=== PATIENT | female | born 1975 | race Caucasian/White ===

== ENCOUNTER 2016-09-17 15:40 | Emergency (ER) | payer OTHER ==
[2016-09-17 16:33] LABS: Appearance,Urine Clear (Clear); Bilirubin,Urine Negative (Negative); Glucose,Urine (UA) 4+ (Negative); Ketones,Urine Negative (Negative); Leukocyte Esterase,Urine Negative (Negative); Mucus,Urine Rare /hpf; Nitrite,Urine Negative (Negative); PH, Urine 5.5 (5.0-8.0); Particle Count 3771; Protein,Urine 1+ (Negative); RBC,Urine >182 /hpf (0-5); Specific Gravity,Urine 1.034 (1.001-1.035); Squamous Epithelial Cell,Urine 3 /hpf (0-4); UA Billing (MACRO vs. MICRO) MICRO; Urobilinogen,Urine <2.0 mg/dL (<2.0); WBC,Urine 5 /hpf (0-5)
[2016-09-17] MEDS ORDERED: ONDANSETRON 4 MG/2 ML VIAL IVP STA (16:34)
[2016-09-17] MEDS ORDERED: MORPHINE SULFATE 4 MG/ML SYRINGE IVP STA (16:34)
[2016-09-17] MEDS ORDERED: SODIUM CHLORIDE 0.9% 1,000 ML IV ONE (16:34)
--- NOTE | 2016-09-17 16:44 | ED ---
Abdominal Pain HPI - General Chief Complaint: Abdominal Pain Stated Complaint: abdominal/back/leg pain Time Seen by Provider: 09/17/16 16:03 Source: patient, RN notes reviewed Mode of arrival: wheelchair Limitations: no limitations - History of Present Illness Initial Comments: Patient is a 41-year-old female presents emergency room for evaluation of abdominal pain. Patient states she has nonalcoholic fatty liver disease. Patient states a month ago she was having right lower quadrant pain and went to [facility]. Patient states they did blood work and CT and was told she had urinary tract infection and sent her home. Patient states pain has returned the past 2 days. Patient states she has had bright red blood in her stools 2 days ago. Patient denies any blood in her stools today. Patient states she has a history of hemorrhoids. Patient denies any rectal pain or constipation. Patient states she is nauseous but denies vomiting. Patient states she has right-sided abdominal pain that radiates to her flank area. Patient denies any burning while urinating. Patient denies history of known kidney stones. Patient denies chest pain or shortness of breath. Patient states she has a history cholecystectomy. Patient states that she feels dizzy every once a while. Patient denies headache. Patient denies fevers or chills. - Related Data Previous Rx's Medication Instructions Recorded HYDROcodone/APAP 5-325MG [[place] 1 tab PO Q6HR PRN #12 tab 09/17/16 5-325] Ibuprofen [Motrin] 600 mg PO Q6HR PRN #20 tab 09/17/16 Metoclopramide HCl [Reglan] 5 mg PO TID PRN #12 tablet 09/17/16 Tamsulosin HCl [Flomax] 0.4 mg PO DAILY #10 cap 09/17/16 Allergies Allergy/AdvReac Type Severity Reaction Status Date / Time black pepper Allergy Rash/Hives Verified 09/17/16 16:16 metformin AdvReac Nausea & Verified 09/17/16 16:16 Vomiting Review of Systems ROS Statement: Those systems with pertinent positive or pertinent negative responses have been documented in the HPI. ROS Other: All systems not noted in ROS Statement are negative. Past Medical History Past Medical History: Asthma, CVA/TIA, Diabetes Mellitus, Liver Disease Additional Past Medical History / Comment(s): GALLSTONES, DIVERTICULITIS, fatty liver History of Any Multi-Drug Resistant Organisms: None Reported Past Surgical History: Section, Cholecystectomy, Tubal Ligation Past Anesthesia/Blood Transfusion Reactions: No Reported Reaction Past Psychological History: Bipolar, Depression Smoking Status: Current every day smoker Past Alcohol Use History: None Reported Past Drug Use History: Marijuana General Exam - General Exam Comments Initial Comments: laying in exam room, no distress. Limitations: no limitations General appearance: alert, in no apparent distress Head exam: Present: atraumatic, normocephalic, normal inspection Eye exam: Present: normal appearance ENT exam: Present: normal exam Neck exam: Present: normal inspection Respiratory exam: Present: normal lung sounds bilaterally. Absent: respiratory distress Cardiovascular Exam: Present: normal rhythm, tachycardia, normal heart sounds GI/Abdominal exam: Present: soft, tenderness (right upper quadrant), normal bowel sounds. Absent: distended, guarding, rebound, rigid Extremities exam: Present: normal inspection Back exam: Present: normal inspection, CVA tenderness (R). Absent: CVA tenderness (L) Neurological exam: Present: alert, oriented X3, CN II-XII intact, normal gait Psychiatric exam: Present: normal affect, normal mood Skin exam: Present: warm, dry, intact, normal color. Absent: rash Course Vital Signs 09/17/16 09/17/16 09/17/16 15:47 17:19 18:15 Temperature 99.3 F Pulse Rate 113 H 94 92 Respiratory 18 20 18 Rate Blood Pressure 136/70 124/56 126/58 O2 Sat by Pulse 98 98 99 Oximetry - Reevaluation(s) Reevaluation #1: 09/17/16 18:19 Results and from [facility] from 07/14/16. CT of abdomen/pelvis from does show that there is a 3 mm calcification in the lower pole of the right kidney and a 3 mm calcification in the lower pole of left kidney. Patient is noted to have hematuria currently. Patient is not menstruating. Patient complaining of flank and right sided abdominal pain. Patient's symptoms consistent with kidney stone passing. Patient states she is still having pain. Patient will be sent home after symptoms improve. 09/17/16 18:49 Medical Decision Making - Medical Decision Making Patient is a 41-year-old emergency room for evaluation of right-sided abdominal pain and right-sided flank pain. the patient did mention after evaluation that she had chest pain 2 days ago. Patient denies any current chest pain. Cardiac workup negative. Urinalysis significant for hematuria. Discussed differentials with patient including possible kidney stone. Patient does have stones noted in last CT from 07/14/16 at [facility]. It is likely patient is passing a kidney stone. Patient be sent home with pain medications and advised to follow- up with urologist. Patient states she understands everything that was discussed with her. Return parameters discussed. Case discussed with Dr. Brito. - Lab Data Result diagrams: 09/17/16 16:40 09/17/16 16:40 Lab Results 09/17/16 09/17/16 09/17/16 Range/Units 16:14 16:14 16:40 WBC (3.8-10.6) k/uL RBC (3.80-5.40) m/uL Hgb (11.4-16.0) gm/dL Hct (34.0-46.0) % MCV (80.0-100.0) fL MCH (25.0-35.0) pg MCHC (31.0-37.0) g/dL RDW (11.5-15.5) % Plt Count (150-450) k/uL Neutrophils % % Lymphocytes % % Monocytes % % Eosinophils % % Basophils % % Neutrophils # (1.3-7.7) k/uL Lymphocytes # (1.0-4.8) k/uL Monocytes # (0-1.0) k/uL Eosinophils # (0-0.7) k/uL Basophils # (0-0.2) k/uL Hypochromasia Microcytosis PT (9.0-12.0) sec INR (<1.2) APTT (22.0-30.0) sec D-Dimer (<0.60) mg/L FEU Sodium (137-145) mmol/L Potassium (3.5-5.1) mmol/L Chloride (98-107) mmol/L Carbon Dioxide (22-30) mmol/L Anion Gap mmol/L BUN (7-17) mg/dL Creatinine (0.52-1.04) mg/dL Est GFR (MDRD) Af Amer (>60 ml/min/1.73 sqM) Est GFR (MDRD) Non-Af (>60 ml/min/1.73 sqM) Glucose (74-99) mg/dL Plasma Lactic Acid Hubert (0.7-2.0) mmol/L Calcium (8.4-10.2) mg/dL Magnesium (1.6-2.3) mg/dL Total Bilirubin (0.2-1.3) mg/dL AST (14-36) U/L ALT (9-52) U/L Alkaline Phosphatase (38-126) U/L Total Creatine Kinase (30-135) U/L CK-MB (CK-2) (0.0-2.4) ng/mL CK-MB (CK-2) Rel Index Troponin I (0.000-0.034) ng/mL Total Protein (6.3-8.2) g/dL Albumin (3.5-5.0) g/dL Amylase (30-110) U/L Lipase 69 (23-300) U/L Urine Color Yellow Urine Appearance Clear (Clear) Urine pH 5.5 (5.0-8.0) Ur Specific Matthews 1.034 (1.001-1.035) Urine Protein 1+ H (Negative) Urine Glucose (UA) 4+ H (Negative) Urine Ketones Negative (Negative) Urine Blood Large H (Negative) Urine Nitrite Negative (Negative) Urine Bilirubin Negative (Negative) Urine Urobilinogen <2.0 (<2.0) mg/dL Ur Leukocyte Esterase Negative (Negative) Urine RBC >182 H (0-5) /hpf Urine WBC 5 (0-5) /hpf Ur Squamous Epith Cells 3 (0-4) /hpf Urine Mucus Rare H (None) /hpf Urine HCG, Qual Not Detected (Not Detectd) Stool Occult Blood (Negative) 09/17/16 09/17/16 09/17/16 Range/Units 16:40 16:40 16:40 WBC 10.1 (3.8-10.6) k/uL RBC 4.51 (3.80-5.40) m/uL Hgb 11.1 L (11.4-16.0) gm/dL Hct 35.1 (34.0-46.0) % MCV 78.0 L (80.0-100.0) fL MCH 24.6 L (25.0-35.0) pg MCHC 31.6 (31.0-37.0) g/dL RDW 15.3 (11.5-15.5) % Plt Count 250 (150-450) k/uL Neutrophils % 62 % Lymphocytes % 27 % Monocytes % 4 % Eosinophils % 4 % Basophils % 1 % Neutrophils # 6.3 (1.3-7.7) k/uL Lymphocytes # 2.7 (1.0-4.8) k/uL Monocytes # 0.4 (0-1.0) k/uL Eosinophils # 0.4 (0-0.7) k/uL Basophils # 0.1 (0-0.2) k/uL Hypochromasia Marked Microcytosis Slight PT (9.0-12.0) sec INR (<1.2) APTT (22.0-30.0) sec D-Dimer (<0.60) mg/L FEU Sodium 135 L (137-145) mmol/L Potassium 4.1 (3.5-5.1) mmol/L Chloride 101 (98-107) mmol/L Carbon Dioxide 22 (22-30) mmol/L Anion Gap 12 mmol/L BUN 11 (7-17) mg/dL Creatinine 0.52 (0.52-1.04) mg/dL Est GFR (MDRD) Af Amer >60 (>60 ml/min/1.73 sqM) Est GFR (MDRD) Non-Af >60 (>60 ml/min/1.73 sqM) Glucose 324 H (74-99) mg/dL Plasma Lactic Acid Hubert 1.5 (0.7-2.0) mmol/L Calcium 9.2 (8.4-10.2) mg/dL Magnesium (1.6-2.3) mg/dL Total Bilirubin 0.9 (0.2-1.3) mg/dL AST 72 H (14-36) U/L ALT 117 H (9-52) U/L Alkaline Phosphatase 176 H (38-126) U/L Total Creatine Kinase (30-135) U/L CK-MB (CK-2) (0.0-2.4) ng/mL CK-MB (CK-2) Rel Index Troponin I (0.000-0.034) ng/mL Total Protein 7.9 (6.3-8.2) g/dL Albumin 4.1 (3.5-5.0) g/dL Amylase 57 (30-110) U/L Lipase (23-300) U/L Urine Color Urine Appearance (Clear) Urine pH (5.0-8.0) Ur Specific Matthews (1.001-1.035) Urine Protein (Negative) Urine Glucose (UA) (Negative) Urine Ketones (Negative) Urine Blood (Negative) Urine Nitrite (Negative) Urine Bilirubin (Negative) Urine Urobilinogen (<2.0) mg/dL Ur Leukocyte Esterase (Negative) Urine RBC (0-5) /hpf Urine WBC (0-5) /hpf Ur Squamous Epith Cells (0-4) /hpf Urine Mucus (None) /hpf Urine HCG, Qual (Not Detectd) Stool Occult Blood (Negative) 09/17/16 09/17/16 09/17/16 Range/Units 16:40 16:40 16:40 WBC (3.8-10.6) k/uL RBC (3.80-5.40) m/uL Hgb (11.4-16.0) gm/dL Hct (34.0-46.0) % MCV (80.0-100.0) fL MCH (25.0-35.0) pg MCHC (31.0-37.0) g/dL RDW (11.5-15.5) % Plt Count (150-450) k/uL Neutrophils % % Lymphocytes % % Monocytes % % Eosinophils % % Basophils % % Neutrophils # (1.3-7.7) k/uL Lymphocytes # (1.0-4.8) k/uL Monocytes # (0-1.0) k/uL Eosinophils # (0-0.7) k/uL Basophils # (0-0.2) k/uL Hypochromasia Microcytosis PT (9.0-12.0) sec INR (<1.2) APTT (22.0-30.0) sec D-Dimer (<0.60) mg/L FEU Sodium (137-145) mmol/L Potassium (3.5-5.1) mmol/L Chloride (98-107) mmol/L Carbon Dioxide (22-30) mmol/L Anion Gap mmol/L BUN (7-17) mg/dL Creatinine (0.52-1.04) mg/dL Est GFR (MDRD) Af Amer (>60 ml/min/1.73 sqM) Est GFR (MDRD) Non-Af (>60 ml/min/1.73 sqM) Glucose (74-99) mg/dL Plasma Lactic Acid Hubert (0.7-2.0) mmol/L Calcium (8.4-10.2) mg/dL Magnesium 1.5 L (1.6-2.3) mg/dL Total Bilirubin (0.2-1.3) mg/dL AST (14-36) U/L ALT (9-52) U/L Alkaline Phosphatase (38-126) U/L Total Creatine Kinase 33 (30-135) U/L CK-MB (CK-2) 0.4 (0.0-2.4) ng/mL CK-MB (CK-2) Rel Index 1.2 Troponin I <0.012 (0.000-0.034) ng/mL Total Protein (6.3-8.2) g/dL Albumin (3.5-5.0) g/dL Amylase (30-110) U/L Lipase (23-300) U/L Urine Color Urine Appearance (Clear) Urine pH (5.0-8.0) Ur Specific Matthews (1.001-1.035) Urine Protein (Negative) Urine Glucose (UA) (Negative) Urine Ketones (Negative) Urine Blood (Negative) Urine Nitrite (Negative) Urine Bilirubin (Negative) Urine Urobilinogen (<2.0) mg/dL Ur Leukocyte Esterase (Negative) Urine RBC (0-5) /hpf Urine WBC (0-5) /hpf Ur Squamous Epith Cells (0-4) /hpf Urine Mucus (None) /hpf Urine HCG, Qual (Not Detectd) Stool Occult Blood Negative (Negative) 09/17/16 Range/Units 16:40 WBC (3.8-10.6) k/uL RBC (3.80-5.40) m/uL Hgb (11.4-16.0) gm/dL Hct (34.0-46.0) % MCV (80.0-100.0) fL MCH (25.0-35.0) pg MCHC (31.0-37.0) g/dL RDW (11.5-15.5) % Plt Count (150-450) k/uL Neutrophils % % Lymphocytes % % Monocytes % % Eosinophils % % Basophils % % Neutrophils # (1.3-7.7) k/uL Lymphocytes # (1.0-4.8) k/uL Monocytes # (0-1.0) k/uL Eosinophils # (0-0.7) k/uL Basophils # (0-0.2) k/uL Hypochromasia Microcytosis PT 10.8 (9.0-12.0) sec INR 1.1 (<1.2) APTT 23.4 (22.0-30.0) sec D-Dimer 0.31 (<0.60) mg/L FEU Sodium (137-145) mmol/L Potassium (3.5-5.1) mmol/L Chloride (98-107) mmol/L Carbon Dioxide (22-30) mmol/L Anion Gap mmol/L BUN (7-17) mg/dL Creatinine (0.52-1.04) mg/dL Est GFR (MDRD) Af Amer (>60 ml/min/1.73 sqM) Est GFR (MDRD) Non-Af (>60 ml/min/1.73 sqM) Glucose (74-99) mg/dL Plasma Lactic Acid Hubert (0.7-2.0) mmol/L Calcium (8.4-10.2) mg/dL Magnesium (1.6-2.3) mg/dL Total Bilirubin (0.2-1.3) mg/dL AST (14-36) U/L ALT (9-52) U/L Alkaline Phosphatase (38-126) U/L Total Creatine Kinase (30-135) U/L CK-MB (CK-2) (0.0-2.4) ng/mL CK-MB (CK-2) Rel Index Troponin I (0.000-0.034) ng/mL Total Protein (6.3-8.2) g/dL Albumin (3.5-5.0) g/dL Amylase (30-110) U/L Lipase (23-300) U/L Urine Color Urine Appearance (Clear) Urine pH (5.0-8.0) Ur Specific Matthews (1.001-1.035) Urine Protein (Negative) Urine Glucose (UA) (Negative) Urine Ketones (Negative) Urine Blood (Negative) Urine Nitrite (Negative) Urine Bilirubin (Negative) Urine Urobilinogen (<2.0) mg/dL Ur Leukocyte Esterase (Negative) Urine RBC (0-5) /hpf Urine WBC (0-5) /hpf Ur Squamous Epith Cells (0-4) /hpf Urine Mucus (None) /hpf Urine HCG, Qual (Not Detectd) Stool Occult Blood (Negative) - Radiology Data Radiology results: report reviewed, image reviewed normal sinus rhythm, ventricular rate 92 bpm, MD interval 188 ms, QRS duration 78 ms Disposition Clinical Impression: Hematuria, Flank pain Disposition: HOME SELF-CARE Condition: Good Instructions: Kidney Stones (ED), How to Strain Your Urine (ED), Flank Pain (ED ) Additional Instructions: Drink plenty of water. Take medications as directed. Please follow-up with urologist. If any new symptom arises or symptoms worsen, return to ER as soon as possible. Prescriptions: HYDROcodone/APAP 5-325MG [[place] 5-325] 1 tab PO Q6HR PRN #12 tab PRN Reason: Pain Ibuprofen [Motrin] 600 mg PO Q6HR PRN #20 tab PRN Reason: Pain Metoclopramide HCl [Reglan] 5 mg PO TID PRN #12 tablet PRN Reason: Nausea Tamsulosin HCl [Flomax] 0.4 mg PO DAILY #10 cap Referrals: Sahil Meraz MD [Primary Care Provider] - 1-2 days Shady Slade MD [STAFF PHYSICIAN] - 1-2 days Time of Disposition: 18:52
[2016-09-17 16:58] LABS: Basophils # (A) 0.1 k/uL (0-0.2); Basophils % (A) 1 %; Hypochromasia Marked; Microcytosis Slight
[2016-09-17 17:00] LABS: CH 23.3; Eosinophils # (A) 0.4 k/uL (0-0.7); Eosinophils % (A) 4 %; HCT 35.1 % (34.0-46.0); HGB 11.1 gm/dL (11.4-16.0); Luc # (Auto) 0.19; Luc % (Auto) 2; Lymphocytes # (A) 2.7 k/uL (1.0-4.8); Lymphocytes % (A) 27 %; MCH 24.6 pg (25.0-35.0); MCHC 31.6 g/dL (31.0-37.0); Mean Platelet Volume 7.4; Monocytes # (A) 0.4 k/uL (0-1.0); Monocytes % (A) 4 %; Neutrophils # (A) 6.3 k/uL (1.3-7.7); Neutrophils % (A) 62 %; RBC 4.51 m/uL (3.80-5.40); RDW 15.3 % (11.5-15.5); WBC 10.1 k/uL (3.8-10.6); WBC (Perox) 9.94
[2016-09-17 17:04] LABS: ALT 117 U/L (9-52); AST 72 U/L (14-36); Alkaline Phosphatase 176 U/L (38-126); Amylase 57 U/L (30-110); Anion Gap 12 mmol/L; Blood Urea Nitrogen 11 mg/dL (7-17); Calcium 9.2 mg/dL (8.4-10.2); Carbon Dioxide 22 mmol/L (22-30); Chloride 101 mmol/L (98-107); Glucose 324 mg/dL (74-99); Non-African American GFR(MDRD) >60 (>60 ml/min/1.73 sqM); Potassium 4.1 mmol/L (3.5-5.1); Sodium 135 mmol/L (137-145); Total Bilirubin 0.9 mg/dL (0.2-1.3); Total Protein 7.9 g/dL (6.3-8.2)
[2016-09-17 17:43] LABS: Creatine Kinase 33 U/L (30-135); INR 1.1 (<1.2); Partial Thromboplastin Time 23.4 sec (22.0-30.0); Prothrombin Time 10.8 sec (9.0-12.0)
--- NOTE | 2016-09-17 17:49 | XR ---
EXAMINATION TYPE: XR abdomen acute w cxr DATE OF EXAM: 09/17/2016 CLINICAL HISTORY: Chest and abdominal pain wrapping around back for 2 days . TECHNIQUE: Single frontal view of chest is obtained. Supine and upright views of the abdomen are acq uired. COMPARISON: Chest x-ray and CTA chest April 25, 2014. CT abdomen and pelvis April 06, 2015. FINDINGS: The lungs are grossly clear without pleural effusion or pneumothorax. Cardiac silhouette size appears within normal limits. Atherosclerotic change in aortic knob is noted. Osseous structure s are intact. Gas is noted in nondistended stomach and small bowel loops. Gas and fecal material is seen in nondis tended colon. Cholecystectomy clips are present. No pneumoperitoneum is seen. Spleen remains prominen t. Spurring in both hips at level of greater trochanter is redemonstrated. No pneumoperitoneum is see n. IMPRESSION: 1. No acute pulmonary process. 2. Overall nonobstructive bowel gas pattern. Probable splenomegaly is now noted.
[2016-09-17 17:55] LABS: Creatine Kinase MB 0.4 ng/mL (0.0-2.4); Troponin I <0.012 ng/mL (0.000-0.034)
[2016-09-17] MEDS ORDERED: TAMSULOSIN 0.4 MG CAP.ER.24H PO STA (18:18)
[2016-09-17] MEDS ORDERED: KETOROLAC 30 MG/ML 1 ML VIAL IVP STA (18:19)
[2016-09-17] MEDS ORDERED: HYDROmorphone 1 MG/ML 1 ML SYRINGE IVP STA (18:19)
[2016-09-17] MEDS ORDERED: SODIUM CHLORIDE 0.9% 500 ML IV ONE (18:24)
[2016-09-17 18:40] VITALS: RESP 18
[2016-09-17 19:16] VITALS: BP 105/51; PULSE 89; TEMP 98.9
== END 2016-09-17 19:15 | disposition home or self-care (01) ==
LOC: EC 15:40
DX: R31.9 Hematuria, unspecified (principal); R10.11 Right upper quadrant pain; R00.0 Tachycardia, unspecified; F17.200 Nicotine dependence, unspecified, uncomplicated; Z87.19 Personal history of other diseases of the digestive system; Z90.49 Acquired absence of other specified parts of digestive tract; Z91.018 Allergy to other foods; Z88.8 Allergy status to other drugs, medicaments and biological substances; Z87.442 Personal history of urinary calculi
CPT/HCPCS: 99285; 96374; 96375 ×3; 96361 ×2; 36415; 93005; 85379; 80053; 82150; 82550; 82553; 83605; 83690; 83735; 84484; 85025; 85610; 85730; 82272; 81001; 81025; 87040; 74022; J2270; J2405; J1885; J1170

== ENCOUNTER → 2017-02-23 | Outpatient (CLI) | payer OTHER ==
[2017-02-23 17:49] LABS: Blood Urea Nitrogen 8 mg/dL (7-17); Non-African American GFR(MDRD) >60 (>60 ml/min/1.73 sqM)
--- NOTE | 2017-02-23 19:56 | CT ---
EXAMINATION TYPE: CT abdomen pelvis w con DATE OF EXAM: 02/23/2017 COMPARISON: 04/06/2015 HISTORY: Right lower quadrant abdominal pain with nausea. CT DLP: 1751.00 mGycm Automated exposure control for dose reduction was used. TECHNIQUE: Helical acquisition of images was performed from the lung bases through the pelvis. CONTRAST: Performed with Oral Contrast and with IV Contrast, patient injected with 100 mL of Omnipaque 300. FINDINGS: LUNG BASES: No significant abnormality is appreciated. LIVER/GB: No significant abnormality is appreciated. PANCREAS: No significant abnormality is seen. SPLEEN: No significant abnormality is seen. ADRENALS: No significant abnormality is seen. KIDNEYS: No significant abnormality is seen. Previously seen 4 mm nonobstructing calcification in the lower pole of the left kidney is redemonstrated without interval change. PERITONEAL CAVITY: No abnormal fluid or gas collections. RETROPERITONEAL ADENOPATHY: None visualized REPRODUCTIVE ORGANS: No significant abnormality is seen URINARY BLADDER: No significant abnormality is seen. PELVIC ADENOPATHY: None visualized. OSSEOUS STRUCTURES: No significant abnormality is seen. BOWEL: No significant abnormality is seen. Terminal ileum is well-seen and has normal appearance, as does the appendix and the cecum. OTHER: The anterior abdominal pelvic muscular wall is intact. VASCULATURE: Negative as seen. IMPRESSION: NO ACUTE PROCESS.
== END | disposition home or self-care (01) ==
LOC: RADCTMAIN 17:02
PROVIDERS: ATTEND Family Medicine
DX: R10.31 Right lower quadrant pain (principal); Z88.8 Allergy status to other drugs, medicaments and biological substances
CPT/HCPCS: 82565; 84520; 74177; 36415; Q9967

== ENCOUNTER 2017-05-24 22:56 | Emergency (ER) | payer OTHER ==
[2017-05-24 23:00] VITALS: BP 133/76; PULSE 85; RESP 18; TEMP 99.4
--- NOTE | 2017-05-24 23:25 | ED ---
URI HPI - General Chief Complaint: Upper Respiratory Infection Stated Complaint: Ear Pain/Sore Throat Time Seen by Provider: 05/24/17 23:16 Source: patient Mode of arrival: ambulatory Limitations: no limitations - History of Present Illness Initial Comments: This is a 41-year-old female who presents emergency department for sinus pressure, bilateral ear pain, and sore throat. She states that she has been treated for pneumonia for the last 2 weeks. She's been on a course of Cipro and is currently taking Keflex. She states that she's her primary doctor today for the above symptoms and was told that she was not going to get any more medications. She denies any fevers or chills. Does admit to a cough and a little bit of shortness of breath. No chest pain. No other acute complaints. - Related Data Previous Rx's Medication Instructions Recorded HYDROcodone/APAP 5-325MG [[place] 1 tab PO Q6HR PRN #12 tab 09/17/16 5-325] Ibuprofen [Motrin] 600 mg PO Q6HR PRN #20 tab 09/17/16 Metoclopramide HCl [Reglan] 5 mg PO TID PRN #12 tablet 09/17/16 Tamsulosin HCl [Flomax] 0.4 mg PO DAILY #10 cap 09/17/16 Albuterol Inhaler [Ventolin Hfa 1 - 2 puff INHALATION Q6HR PRN #1 05/24/17 Inhaler] inhaler methylPREDNISolone [Medrol Dose 4 mg PO DIRECTED #1 pack 05/24/17 Pack] Allergies Allergy/AdvReac Type Severity Reaction Status Date / Time black pepper Allergy Rash/Hives Verified 05/24/17 23:35 metformin AdvReac Nausea & Verified 05/24/17 23:35 Vomiting Review of Systems ROS Statement: Those systems with pertinent positive or pertinent negative responses have been documented in the HPI. ROS Other: All systems not noted in ROS Statement are negative. Past Medical History Past Medical History: Asthma, CVA/TIA, Diabetes Mellitus, Liver Disease Additional Past Medical History / Comment(s): GALLSTONES, DIVERTICULITIS, fatty liver History of Any Multi-Drug Resistant Organisms: None Reported Past Surgical History: Section, Cholecystectomy, Tubal Ligation Past Anesthesia/Blood Transfusion Reactions: No Reported Reaction Past Psychological History: Bipolar, Depression Smoking Status: Current every day smoker Past Alcohol Use History: None Reported Past Drug Use History: Marijuana General Exam - General Exam Comments Initial Comments: Constitutional: Awake alert Appears comfortable Head: Normocephalic atraumatic Eyes: no conjunctival injection No scleral icterus EOMI ENT: TMs clear bilaterally, mild oropharyngeal erythema without exudate, there is some nasal mucosal swelling. There is also some mild x-ray sinus tenderness bilaterally Neck: No JVD Supple Heart: Regular rate rhythm normal S1-S2 no murmurs Lungs: Bilateral expiratory wheezes without rhonchi or rales Abdomen: Soft nondistended nontender Extremities: Non edematous DP pulses intact Radial pulses intact Neuro: A&Ox3 No focal neurologic deficits Psych: Appropriate mood and affect Limitations: no limitations Course Vital Signs 05/24/17 22:57 Temperature 99.4 F Pulse Rate 85 Respiratory 18 Rate Blood Pressure 133/76 O2 Sat by Pulse 98 Oximetry Medical Decision Making - Medical Decision Making This is a 41-year-old female who presents emergency department for upper respiratory symptoms. I believe the patient is likely suffering from sinusitis. She is already on antibiotics. I'm going to add steroids and albuterol to her regimen. Also told to pickling grader Flonase [id number] at the pharmacy. Told to follow-up with her primary doctor. Can return if she has worsening symptoms. All questions were answered. Disposition Clinical Impression: URI (upper respiratory infection), Sinusitis, Bronchitis Disposition: HOME SELF-CARE Condition: Stable Instructions: Sinusitis (ED), Upper Respiratory Infection (ED) Prescriptions: Albuterol Inhaler [Ventolin Hfa Inhaler] 1 - 2 puff INHALATION Q6HR PRN #1 inhaler PRN Reason: Cough/Wheezing methylPREDNISolone [Medrol Dose Pack] 4 mg PO DIRECTED #1 pack Referrals: Sahil Meraz MD [Primary Care Provider] - 1-2 days
== END 2017-05-24 23:35 | disposition home or self-care (01) ==
LOC: EC 22:56
DX: J40 Bronchitis, not specified as acute or chronic (principal); J32.9 Chronic sinusitis, unspecified; J06.9 Acute upper respiratory infection, unspecified; F17.200 Nicotine dependence, unspecified, uncomplicated; Z88.8 Allergy status to other drugs, medicaments and biological substances; Z91.018 Allergy to other foods
CPT/HCPCS: 99283

== ENCOUNTER 2017-05-27 02:40 | Emergency (ER) | payer OTHER ==
[2017-05-27] MEDS ORDERED: KETOROLAC 30 MG/ML 1 ML VIAL IVP STA (03:00)
[2017-05-27] MEDS ORDERED: guaiFENesin-DM 600/30MG 1 EACH TAB.ER.12H PO STA (03:00)
[2017-05-27] MEDS ORDERED: ACET/COD 300 MG/30 MG STARTER PACK 6 TAB BTL PO STA (03:00)
--- NOTE | 2017-05-27 03:26 | ED ---
ENT HPI - General Chief complaint: ENT Stated complaint: Earache Time Seen by Provider: 05/27/17 02:50 Source: patient, RN notes reviewed, old records reviewed Mode of arrival: ambulatory Limitations: no limitations - History of Present Illness Initial comments: This patient is a 41-year-old FEMAle for reevaluation chief complaint right ear pain. She reports that she's had having the symptoms for 5 days. Worse in the past few hours of nose bleeding really home with just Motrin. Patient states that she feels a fullness area. No drainage. She said had of the ear. She denies any new exposures. Patient denies any recent fever, chills, shortness of breath, chest pain, back pain, abdominal pain, nausea vomiting, numbness or tingling, dysuria or hematuria, constipation or diarrhea, headaches or visual changes, or any other current symptoms - Related Data Home Medications Medication Instructions Recorded Confirmed Albuterol Nebulized [Ventolin 2.5 mg INHALATION RT-Q4H PRN 05/24/17 05/24/17 Nebulized] Cephalexin [Keflex] 500 mg PO QID 05/24/17 05/24/17 Previous Rx's Medication Instructions Recorded Albuterol Inhaler [Ventolin Hfa 1 - 2 puff INHALATION Q6HR PRN #1 05/24/17 Inhaler] inhaler methylPREDNISolone [Medrol Dose 4 mg PO DIRECTED #1 pack 05/24/17 Pack] Amoxic-Pot Clav 875-125Mg 1 tab PO Q12HR #20 tablet 05/27/17 [Augmentin 875-125] Ciprofloxacin Ophth Soln [Cipro 1 drops LEFT EYE Q4HR #1 bottle 05/27/17 Ophth Soln] guaiFENesin-DM 600/30MG [Mucinex 1 each PO Q12HR #12 tab.er.12h 05/27/17 Dm] Allergies Allergy/AdvReac Type Severity Reaction Status Date / Time black pepper Allergy Rash/Hives Verified 05/24/17 23:35 metformin AdvReac Nausea & Verified 05/24/17 23:35 Vomiting Review of Systems ROS Statement: Those systems with pertinent positive or pertinent negative responses have been documented in the HPI. ROS Other: All systems not noted in ROS Statement are negative. Past Medical History Past Medical History: Asthma, CVA/TIA, Diabetes Mellitus, Liver Disease Additional Past Medical History / Comment(s): GALLSTONES, DIVERTICULITIS, fatty liver History of Any Multi-Drug Resistant Organisms: None Reported Past Surgical History: Section, Cholecystectomy, Tubal Ligation Past Anesthesia/Blood Transfusion Reactions: No Reported Reaction Past Psychological History: Bipolar, Depression Smoking Status: Former smoker Past Alcohol Use History: None Reported Past Drug Use History: Marijuana General Exam - General Exam Comments Initial Comments: This is a 41-year-old female. No distress. Limitations: no limitations General appearance: alert, in no apparent distress Head exam: Present: atraumatic, normocephalic, normal inspection Eye exam: Present: normal appearance, PERRL, EOMI. Absent: scleral icterus, conjunctival injection, periorbital swelling ENT exam: Present: normal exam, mucous membranes moist. Absent: TM's normal bilaterally (Patient has an erythematous bulging right TM. Tenderness to palpation over the mid right mastoid.) Neck exam: Present: normal inspection, full ROM. Absent: tenderness, meningismus, lymphadenopathy Respiratory exam: Present: normal lung sounds bilaterally. Absent: respiratory distress, wheezes, rales, rhonchi, stridor Cardiovascular Exam: Present: regular rate, normal rhythm, normal heart sounds. Absent: systolic murmur, diastolic murmur, rubs, gallop, clicks GI/Abdominal exam: Present: soft, normal bowel sounds. Absent: distended, tenderness, guarding, rebound, rigid Extremities exam: Present: normal inspection Back exam: Present: normal inspection Neurological exam: Present: alert, oriented X3, CN II-XII intact Psychiatric exam: Present: normal affect, normal mood Skin exam: Present: warm, dry, intact, normal color. Absent: rash Course Vital Signs 05/27/17 05/27/17 05/27/17 02:43 04:55 05:11 Temperature 98.7 F Pulse Rate 77 76 76 Respiratory 20 Rate Blood Pressure 151/65 O2 Sat by Pulse 98 Oximetry 05/27/17 05:24 Temperature 98.2 F Pulse Rate 72 Respiratory 18 Rate Blood Pressure 132/66 O2 Sat by Pulse 96 Oximetry - Reevaluation(s) Reevaluation #1: 05/27/17 04:40 Patient was reevaluated and resting comfortably in bed. She is coughing milk and does complain of some wheezing. Breathing treatment and IV Solu-Medrol ordered. Medical Decision Making - Medical Decision Making Patient is a 41-year-old female presents emergency Department chief complaint of severe right ear pain. Patient was tender over the mastoid. Erythematous right TM. She recently finished Keflex antibiotic yesterday. Patient is given IV fluids labwork obtained. Patient does have an elevated white blood cell count however this could be related to the patient's steroids that she is currently taking. Patient was reevaluated again did have some minor wheezing. Given a breathing treatment and cough syrup. Patient chest x-ray was reviewed and normal. CT shows evdience of left TM otitis interna, no signs of right otitis interna. They also question possibiity of underlying tumor. Patient informed of these results. Discussed appropriate follow up withENT. Will start patient on augmentin, cipro drops. Discussed return parameters and follow up with PCP. - Lab Data Result diagrams: 05/27/17 04:00 05/27/17 04:00 Lab Results 05/27/17 05/27/17 Range/Units 04:00 04:00 WBC 15.9 H (3.8-10.6) k/uL RBC 4.35 (3.80-5.40) m/uL Hgb 9.6 L (11.4-16.0) gm/dL Hct 32.4 L (34.0-46.0) % MCV 74.4 L (80.0-100.0) fL MCH 22.1 L (25.0-35.0) pg MCHC 29.7 L (31.0-37.0) g/dL RDW 16.5 H (11.5-15.5) % Plt Count 352 (150-450) k/uL Neutrophils % 81 % Lymphocytes % 12 % Monocytes % 4 % Eosinophils % 1 % Basophils % 1 % Neutrophils # 12.8 H (1.3-7.7) k/uL Lymphocytes # 2.0 (1.0-4.8) k/uL Monocytes # 0.7 (0-1.0) k/uL Eosinophils # 0.1 (0-0.7) k/uL Basophils # 0.1 (0-0.2) k/uL Hypochromasia Marked Anisocytosis Slight Microcytosis Slight Sodium 136 L (137-145) mmol/L Potassium 5.0 (3.5-5.1) mmol/L Chloride 103 (98-107) mmol/L Carbon Dioxide 19 L (22-30) mmol/L Anion Gap 14 mmol/L BUN 16 (7-17) mg/dL Creatinine 0.50 L (0.52-1.04) mg/dL Est GFR (CKD-EPI)AfAm >90 (>60 ml/min/1.73 sqM) Est GFR (CKD-EPI)NonAf >90 (>60 ml/min/1.73 sqM) Glucose 416 H (74-99) mg/dL Calcium 9.1 (8.4-10.2) mg/dL Total Bilirubin 0.7 (0.2-1.3) mg/dL AST 29 (14-36) U/L ALT 33 (9-52) U/L Alkaline Phosphatase 149 H (38-126) U/L Total Protein 8.3 H (6.3-8.2) g/dL Albumin 4.0 (3.5-5.0) g/dL - Radiology Data Radiology results: report reviewed Chest x-ray is normal. No changes. Opacity case in the left middle ear cavity consistent with otitis interna. There is bulging of the tympanic membrane. Pansinusitis. Normal mastoid sinuses. Changes involving the left middle ear compared to old computed tomography scan. Possibility of tympanic tumor cannot be entirely excluded. Disposition Clinical Impression: Otitis Disposition: HOME SELF-CARE Condition: Good Instructions: Earache (ED) Additional Instructions: Alternate Motrin and Tylenol. Take the meds as prescribed. Follow-up with PCP and her nose and throat specialist. Return to emergency department if any alarming signs or symptoms occur. Prescriptions: Amoxic-Pot Clav 875-125Mg [Augmentin 875-125] 1 tab PO Q12HR #20 tablet Ciprofloxacin Ophth Soln [Cipro Ophth Soln] 1 drops LEFT EYE Q4HR #1 bottle guaiFENesin-DM 600/30MG [Mucinex Dm] 1 each PO Q12HR #12 tab.er.12h Referrals: Sahil Meraz MD [Primary Care Provider] - 1-2 days Jax Steele DO [Doctor of Osteopathic Medicine] - 1-2 days Time of Disposition: 04:45
--- NOTE | 2017-05-27 03:40 | CT ---
EXAMINATION TYPE: CT mastoid wo con DATE OF EXAM: 05/27/2017 COMPARISON: NONE HISTORY: right sided ear ache CT DLP: 471.30 mGycm. Automated Exposure Control for Dose Reduction was Utilized. TECHNIQUE: CT scan of internal auditory canal is performed without contrast, thin cut axial images ar e obtained, coronal reformatted images are also reviewed. FINDINGS: There is normal aeration of the mastoid air cells. External auditory canal on the left side shows increased density at the tympanic membrane. There is opacification of the middle ear cavity on the left side. There is normal aeration of the epitympanic recess bilaterally. I see no bony destruc tive process. Temporomandibular joints are intact. There is moderate mucosal thickening in the frontal maxillary and ethmoid sinuses. There is minimal m ucosal thickening in the sphenoid sinus. CONCLUSION: Opacification of the left middle ear cavity consistent with otitis interna. There is bulging of the t ympanic membrane. Pansinusitis. Normal mastoid sinuses. Changes involving the left middle ear are new compared to old C T scan of the brain of 10/31/2013. Possibility of tympanic tumor cannot be entirely excluded.
--- NOTE | 2017-05-27 03:42 | XR ---
EXAMINATION TYPE: XR chest 2V DATE OF EXAM: 05/27/2017 COMPARISON: 04/25/2014 HISTORY: Pain TECHNIQUE: Frontal and lateral views of the chest are obtained. FINDINGS: Heart and mediastinum are normal. Lungs are clear. Diaphragm bony thorax and soft tissues appear normal. IMPRESSION: Normal chest. No change.
[2017-05-27] MEDS ORDERED: SODIUM CHLORIDE 0.9% 1,000 ML IV ONE (03:45)
[2017-05-27 04:15] LABS: Anisocytosis Slight; Basophils # (A) 0.1 k/uL (0-0.2); Basophils % (A) 1 %; Eosinophils # (A) 0.1 k/uL (0-0.7); Eosinophils % (A) 1 %; HCT 32.4 % (34.0-46.0); HGB 9.6 gm/dL (11.4-16.0); Hypochromasia Marked; Lymphocytes % (A) 12 %; MCH 22.1 pg (25.0-35.0); MCHC 29.7 g/dL (31.0-37.0); MCV 74.4 fL (80.0-100.0); Mean Platelet Volume 8.1; Microcytosis Slight; Monocytes # (A) 0.7 k/uL (0-1.0); Monocytes % (A) 4 %; Neutrophils # (A) 12.8 k/uL (1.3-7.7); Neutrophils % (A) 81 %; Platelet Count 352 k/uL (150-450); RBC 4.35 m/uL (3.80-5.40); RDW 16.5 % (11.5-15.5); WBC 15.9 k/uL (3.8-10.6)
[2017-05-27] MEDS ORDERED: PROMETHAZ-COD 6.25-10 MG/5 ML 5 ML CUP PO STA (04:33)
[2017-05-27] MEDS ORDERED: methylPREDNISolone SOD SUCCI 125 MG/2 ML VIAL IV STA (04:39)
[2017-05-27] MEDS ORDERED: IPRATROPIUM-ALBUTEROL 3 ML NEB INHALATION STA (04:39)
[2017-05-27 04:43] LABS: Anion Gap 14 mmol/L; Calcium 9.1 mg/dL (8.4-10.2); Carbon Dioxide 19 mmol/L (22-30); Chloride 103 mmol/L (98-107); Glucose 416 mg/dL (74-99); Sodium 136 mmol/L (137-145); Total Bilirubin 0.7 mg/dL (0.2-1.3); Total Protein 8.3 g/dL (6.3-8.2)
[2017-05-27 04:46] LABS: ALT 33 U/L (9-52); AST 29 U/L (14-36); Alkaline Phosphatase 149 U/L (38-126); Blood Urea Nitrogen 16 mg/dL (7-17)
[2017-05-27 05:25] VITALS: BP 132/66; PULSE 72; RESP 18; TEMP 98.2
== END 2017-05-27 05:26 | disposition home or self-care (01) ==
LOC: EC 02:40
DX: H83.02 Labyrinthitis, left ear (principal); Z86.73 Personal history of transient ischemic attack (TIA), and cerebral infarction without residual deficits; Z87.891 Personal history of nicotine dependence; Z91.018 Allergy to other foods; Z88.8 Allergy status to other drugs, medicaments and biological substances
CPT/HCPCS: 36415; 94640; 80053; 85025; 71046; 70486; 99284; 96374; 96375; 96361; J2930; J1885

== ENCOUNTER → 2017-06-02 | Outpatient (CLI) | payer OTHER ==
[2017-06-02 11:39] LABS: Anisocytosis Slight; HCT 36.7 % (34.0-46.0); HGB 10.9 gm/dL (11.4-16.0); Hypochromasia Marked; MCH 22.3 pg (25.0-35.0); MCHC 29.7 g/dL (31.0-37.0); MCV 75.1 fL (80.0-100.0); Mean Platelet Volume 7.9; Microcytosis Slight; Platelet Count 329 k/uL (150-450); RBC 4.89 m/uL (3.80-5.40); RDW 16.7 % (11.5-15.5); WBC 11.6 k/uL (3.8-10.6)
[2017-06-02 12:03] LABS: ALT 129 U/L (9-52); AST 78 U/L (14-36); Albumin 3.7 g/dL (3.5-5.0); Alkaline Phosphatase 150 U/L (38-126); Anion Gap 14 mmol/L; Blood Urea Nitrogen 13 mg/dL (7-17); Calcium 9.5 mg/dL (8.4-10.2); Carbon Dioxide 24 mmol/L (22-30); Chloride 103 mmol/L (98-107); Cholesterol 160 mg/dL (<200); Glucose 251 mg/dL (74-99); HDL Cholesterol 53 mg/dL (40-60); LDL Cholesterol,Calculated 79 mg/dL (0-99); Potassium 4.5 mmol/L (3.5-5.1); Sodium 141 mmol/L (137-145); Total Protein 7.6 g/dL (6.3-8.2); Triglycerides 138 mg/dL (<150)
[2017-06-03 14:22] LABS: Hemoglobin A1C 10.7 % (4.0-6.0)
--- NOTE | 2017-06-05 10:16 | XR ---
EXAMINATION TYPE: XR chest 2V DATE OF EXAM: 06/02/2017 COMPARISON: 05/27/2017 TECHNIQUE: PA and lateral views submitted. HISTORY: Cough FINDINGS: The lungs are clear and there is no pneumothorax, pleural effusion, or focal pneumonia. Mild hypert rophic change of the spine. IMPRESSION: 1. No acute process.
== END | disposition home or self-care (01) ==
LOC: LABWHC1 10:25
PROVIDERS: ATTEND Internal Medicine
DX: Z00.00 Encounter for general adult medical examination without abnormal findings (principal); I11.9 Hypertensive heart disease without heart failure; E11.9 Type 2 diabetes mellitus without complications; E03.9 Hypothyroidism, unspecified; D64.9 Anemia, unspecified; K21.0 Gastro-esophageal reflux disease with esophagitis; R05 Cough
CPT/HCPCS: 36415; 71046; 80053; 80061; 82043; 82570; 83036; 84439; 84443; 85027

== ENCOUNTER 2017-06-07 07:44 | Day surgery (SDC) | payer OTHER ==
[2017-06-05 09:24] VITALS: BMI 44.4
[~2017-06-07 07:44] MED LIST: LACTATED RINGERS 1,000 ML IV SCH; LIDOCAINE 1% 20 ML VIAL (10MG/ML) FOR IV START INTRADERMA PRN
[2017-06-07 08:26] VITALS: TEMP 97.6
[2017-06-07 08:28] LABS: Glucose,Whole Blood 262 mg/dL (75-99)
[2017-06-07] MEDS ORDERED: PROPOFOL 10 MG/ML 20 ML VIAL IV ONE (09:19)
[2017-06-07] MEDS ORDERED: LIDOCAINE 1% INJ 10MG/ML (20 ML MDV) ONE (09:19)
--- NOTE | 2017-06-07 09:38 | P.PCN ---
Date of Procedure: 06/07/17 Procedure(s) Performed: Brief history: Patient is a pleasant 41-year-old white female, scheduled for an elective upper endoscopy as well as colonoscopy as a part of evaluation of iron deficiency anemia. She denies any GI symptoms. Procedure performed: Esophagogastroduodenoscopy with biopsy Colonoscopy Preoperative diagnosis: Iron deficiency anemia Anesthesia: [facility] – [place] Procedure: After informed consent was obtained from the patient was brought into the endoscopy unit and IV sedation was administered by anesthesia under continuous monitoring. Initially upper endoscopy was done. The Olympus GF 160 video endoscope was inserted inserted into the mouth and esophagus intubated without any difficulty and was gradually advanced into the stomach and duodenum and carefully examined. The bulb and second part of the duodenum appeared normal. Biopsies were done from the duodenum to rule out celiac disease. The scope was then withdrawn into the stomach adequately insufflated with air and upon careful examination the antrum had mild gastritis and biopsies were done from this area. The barry, cardia and fundus appeared normal. The scope was then withdrawn into the esophagus. The GE junction was located at 40 cm to the incisors. It appeared regular with no erythema erosions or ulcerations. Rest of the esophagus appeared normal. Patient tolerated the procedure well. At this time the patient continued to remain sedation. Initial digital rectal examination was normal. Olympus CF 160 video colonoscope was then inserted into the rectum and gradually advanced to the cecum without any difficulty. Careful examination was performed as the scope was gradually being withdrawn. The prep was excellent. The cecum, ascending colon, transverse colon, descending colon, sigmoid colon and rectum appeared normal. Retroflexion was performed in the rectum and no lesions were noted. Patient tolerated the procedure well. Impression: 1. Upper endoscopy revealed minimal antral gastritis but no evidence of esophagitis or peptic ulcer disease. 2. Colonoscopy was within normal limits with no evidence of colitis or colorectal neoplasia Recommendations: Findings of this examination were discussed with the patient as well dimitri family. She was advised to follow with the biopsy results. She'll be seen in office in 2 weeks. 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
[2017-06-07 09:45] VITALS: RESP 16
[2017-06-07 10:04] VITALS: BP 125/75; PULSE 69
[2017-06-07 10:09] LABS: Glucose,Whole Blood 226 mg/dL (75-99)
== END 2017-06-07 10:31 | disposition home or self-care (01) ==
LOC: ORWHC2ENDO 07:44
PROVIDERS: ATTEND Internal Medicine Gastroenterology
DX: K29.50 Unspecified chronic gastritis without bleeding (principal); D50.9 Iron deficiency anemia, unspecified; I10 Essential (primary) hypertension; E11.9 Type 2 diabetes mellitus without complications; J44.9 Chronic obstructive pulmonary disease, unspecified; Z79.84 Long term (current) use of oral hypoglycemic drugs; Z79.899 Other long term (current) drug therapy; Z79.1 Long term (current) use of non-steroidal anti-inflammatories (NSAID); Z88.8 Allergy status to other drugs, medicaments and biological substances; Z91.02 Food additives allergy status; Z87.891 Personal history of nicotine dependence; Z87.442 Personal history of urinary calculi; Z86.73 Personal history of transient ischemic attack (TIA), and cerebral infarction without residual deficits
CPT/HCPCS: 81025; 88305; 45378; 43239; J2001; J2704

== ENCOUNTER 2017-10-28 05:47 | Emergency (ER) | payer OTHER ==
[2017-10-28] MEDS ORDERED: LIDOCAINE 1% INJ 10MG/ML (20 ML MDV) SQ ONE (06:36)
--- NOTE | 2017-10-28 06:40 | ED ---
General Adult HPI - General Chief complaint: Skin/Abscess/Foreign Body Stated complaint: Cyst Time Seen by Provider: 10/28/17 05:55 Source: patient Mode of arrival: ambulatory Limitations: no limitations - History of Present Illness Initial comments: Janny a 42-year-old female who presents to the emergency department today for evaluation of a labial abscess. Patient reports she's experienced this in the past requiring I&D. She reports that for the past 3 days she noted what appeared to be a small boil or pimple on her left labia lateral to the clitoris. She has been applying compresses but the abscess continues to get larger but not drained. Today the pain became pretty significant so she came to the ER for evaluation. 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 She denies any other complaints - Related Data Home Medications Medication Instructions Recorded Confirmed Albuterol Inhaler [Ventolin Hfa 1 - 2 puff INHALATION Q6HR PRN 06/05/17 10/28/17 Inhaler] Allergies Allergy/AdvReac Type Severity Reaction Status Date / Time black pepper Allergy Rash/Hives Verified 10/28/17 06:00 metformin AdvReac Nausea & Verified 10/28/17 06:00 Vomiting Review of Systems ROS Statement: Those systems with pertinent positive or pertinent negative responses have been documented in the HPI. ROS Other: All systems not noted in ROS Statement are negative. Past Medical History Past Medical History: Asthma, CVA/TIA, Diabetes Mellitus, Liver Disease Additional Past Medical History / Comment(s): GALLSTONES, DIVERTICULITIS, fatty liver History of Any Multi-Drug Resistant Organisms: None Reported Past Surgical History: Section, Cholecystectomy, Tubal Ligation Past Anesthesia/Blood Transfusion Reactions: No Reported Reaction Past Psychological History: Bipolar, Depression Smoking Status: Former smoker Past Alcohol Use History: None Reported Past Drug Use History: Marijuana General Exam - General Exam Comments Initial Comments: GENERAL: Patient is well-developed and well-nourished. Patient is nontoxic and well- hydrated and is in mild distress. HENT: Normocephalic, Atraumatic. Neck is soft and supple. No significant lymphadenopathy is noted. Oropharynx is clear. Moist mucous membranes. EYES: The sclera were anicteric and conjunctiva were pink and moist. Extraocular movements were intact and pupils were equal round and reactive to light. Eyelids were unremarkable. PULMONARY: Unlabored respirations. Good breath sounds bilaterally. No audible rales rhonchi or wheezing was noted. CARDIOVASCULAR: There is a regular rate and rhythm without any murmurs gallops or rubs. ABDOMEN: Soft and nontender with normal bowel sounds. SKIN: Skin is clear with no lesions or rashes and otherwise unremarkable. NEUROLOGIC: Patient is alert and oriented x3. Cranial nerves II through XII are grossly intact. Motor and sensory are also intact. Normal speech, volume and content. Symmetrical smile. MUSCULOSKELETAL: Normal extremities with adequate strength and full range of motion. No lower extremity swelling or edema. No calf tenderness. Straight leg test is negative bilaterally. Perineum has normal sensation GYNECOLOGIC: External exam reveals a fluctuant area to the left labia approximately 1.5 cm in diameter, area is mildly erythematous LYMPHATICS: No significant lymphadenopathy is noted PSYCHIATRIC: Normal psychiatric evaluation. Limitations: no limitations Limitations: no limitations Course Vital Signs 10/28/17 05:50 Temperature 98.4 F Pulse Rate 80 Respiratory 20 Rate Blood Pressure 134/87 O2 Sat by Pulse 98 Oximetry Procedures - Incision & Drainage Consent Obtained: verbal consent Time Out Performed?: Yes Site: vulva/vagina Anesthetic Used: lidocaine 1% Amount (mLs): 2 I&D Cleaning Method: Betadine Sterile Field Used?: No Scalpel Used: #11 Needle Aspiration Performed?: Yes Irrigation Performed?: Yes I&D Drainage Obtained: Pus, Blood Culture Obtained?: No Patient Tolerated Procedure: well Medical Decision Making - Medical Decision Making The patient was seen and evaluated, history was obtained from patient, physical exam reveals a moderately obese female in mild discomfort Physical exam reveals a abscess to the left labia majora Area was cleansed with betadine, anesthestized with lidocaine and a 7mm incision was made, purulent discharge was expressed, the incision was made stellate to delay healing and allow drainage. The incision was not packed. Patient tolerated the procedure well. The patient had no surrounding erythema or signs of cellulitis, this appeared to be an isolated abscess hair follicle. I don't feel IV or oral antibiotics are indicated at this time. Patient will be discharged home to follow up with her primary care physician and referral to gynecology for follow-up. Disposition Clinical Impression: Abscess of labia majora Disposition: HOME SELF-CARE Condition: Good Instructions: Abscess Incision and Drainage (ED) Is patient prescribed a controlled substance at d/c from ED?: No Referrals: None,Stated [Primary Care Provider] - 1-2 days Smitha Torres DO [Doctor of Osteopathic Medicine] - 1-2 days Yaya Villegas MD [STAFF PHYSICIAN] - 1-2 days Narinder Gutierrez DO [Doctor of Osteopathic Medicine] - 1-2 days Time of Disposition: 07:02
[2017-10-28 07:10] VITALS: BP 138/80; PULSE 86; RESP 18; TEMP 97.2
== END 2017-10-28 07:10 | disposition home or self-care (01) ==
LOC: EC 05:47
DX: N76.4 Abscess of vulva (principal); J45.909 Unspecified asthma, uncomplicated; E66.9 Obesity, unspecified; Z68.42 Body mass index [BMI] 45.0-49.9, adult; Z86.73 Personal history of transient ischemic attack (TIA), and cerebral infarction without residual deficits; Z87.891 Personal history of nicotine dependence; Z91.018 Allergy to other foods; Z88.8 Allergy status to other drugs, medicaments and biological substances
CPT/HCPCS: 99282; 56405; J2001

== ENCOUNTER 2017-11-19 17:46 | Emergency (ER) | payer OTHER ==
[2017-11-19 17:54] VITALS: BP 113/62; PULSE 75; RESP 16; TEMP 98.1
[2017-11-19 18:30] LABS: Glucose,Whole Blood 327 mg/dL (75-99)
[2017-11-19] MEDS ORDERED: FLUCONAZOLE 150 MG TAB PO STA (18:36)
--- NOTE | 2017-11-19 18:51 | ED ---
General Adult HPI - General Chief complaint: Urogenital Stated complaint: Female Time Seen by Provider: 11/19/17 18:07 Source: patient, RN notes reviewed Mode of arrival: ambulatory Limitations: no limitations - History of Present Illness Initial comments: 42-year-old female presents to the emergency department for a chief complaint of yeast infection times one week. Patient states she has had multiple yeast infections in the past and states this is completely consistent with previous symptoms. Patient complains of vulvar itching and white discharge. She states she has vulvar irritation when urinating. Patient denies any urinary symptoms, urinary urgency frequency or dysuria. Denies fevers or chills at home Patient denies any chance of STDs or pregnancies and states she is not sexually active. Patient states whenever she gets yeast infection she needs two pills and Monistat cream for 7 days. She states she gets these because she is diabetic. Patient has been out of her medications for the past few months. She states she was let go of her physician's practice so has not had medication refills. She states she does not check her blood sugar and is not sure what her blood sugar has been recently. Patient has no other complaints at this time including shortness of breath, chest pain, abdominal pain, nausea or vomiting, headache, or visual changes. - Related Data Home Medications Medication Instructions Recorded Confirmed Albuterol Inhaler [Ventolin Hfa 1 - 2 puff INHALATION Q6HR PRN 06/05/17 10/28/17 Inhaler] Previous Rx's Medication Instructions Recorded Fluconazole [Diflucan] 150 mg PO ONCE #1 tab 11/19/17 Miconazole 2% Vaginal Cream 1 applicator VAGINAL HS 7 Days 11/19/17 [Monistat 7] cream.appl glipiZIDE [Glucotrol] 10 mg PO AC-BID 30 Days tablet 11/19/17 Allergies Allergy/AdvReac Type Severity Reaction Status Date / Time black pepper Allergy Rash/Hives Verified 11/19/17 17:54 metformin AdvReac Nausea & Verified 11/19/17 17:54 Vomiting Review of Systems ROS Statement: Those systems with pertinent positive or pertinent negative responses have been documented in the HPI. ROS Other: All systems not noted in ROS Statement are negative. Past Medical History Past Medical History: Asthma, CVA/TIA, Diabetes Mellitus, Liver Disease Additional Past Medical History / Comment(s): GALLSTONES, DIVERTICULITIS, fatty liver History of Any Multi-Drug Resistant Organisms: None Reported Past Surgical History: Section, Cholecystectomy, Tubal Ligation Past Anesthesia/Blood Transfusion Reactions: No Reported Reaction Past Psychological History: Bipolar, Depression Smoking Status: Former smoker Past Alcohol Use History: Occasional Past Drug Use History: Marijuana General Exam Limitations: no limitations General appearance: alert, in no apparent distress Head exam: Present: atraumatic, normocephalic, normal inspection Eye exam: Present: normal appearance. Absent: scleral icterus, conjunctival injection ENT exam: Present: normal exam, mucous membranes moist Neck exam: Present: normal inspection, full ROM. Absent: tenderness, meningismus, lymphadenopathy Respiratory exam: Present: normal lung sounds bilaterally. Absent: respiratory distress, wheezes, rales, rhonchi, stridor Cardiovascular Exam: Present: regular rate, normal rhythm, normal heart sounds. Absent: systolic murmur, diastolic murmur, rubs, gallop, clicks Extremities exam: Present: full ROM (Moving all extremities without difficulty) Neurological exam: Present: alert, oriented X3, CN II-XII intact Psychiatric exam: Present: normal affect, normal mood Course Vital Signs 11/19/17 17:51 Temperature 98.1 F Pulse Rate 75 Respiratory 16 Rate Blood Pressure 113/62 O2 Sat by Pulse 98 Oximetry Medical Decision Making - Medical Decision Making 42-year-old female presents to the emergency department for a chief complaint of yeast infection times one week. Patient has had yeast infections previously and states the symptoms are completely similar. She describes full her pruritus and a white vaginal discharge. Patient refuses pelvic exam as she states she knows what she has. She denies any chance of STDs or and states she is not sexually active. She denies fevers or chills at home. Patient states she has these because she is diabetic and has not had her medication refilled. She states she does not check or keep track of her blood sugars. Accu-Chek was 327 here in the emergency department. Anu COSBY contacted pharmacy and verified patient's glipizide prescription. Current glipizide prescription is over recommended dose and patient has not filled this since May. Therefore I did decrease the dose to the recommended dose and had her follow up with primary care. She states she always needs two diflucan pills and Monistat cream for 7 days to treat these yeast infections. She will take the Diflucan here in the emergency department and was given a prescription for Monistat. She will return if she has any worsening symptoms. - Lab Data Lab Results 11/19/17 Range/Units 18:29 POC Glucose (mg/dL) 327 H (75-99) mg/dL POC Glu Digital Marketing Manager ID Anu Goss Disposition Clinical Impression: Yeast infection Disposition: HOME SELF-CARE Condition: Good Instructions: Yeast Infection (ED) Additional Instructions: Please take medications as described. Please follow-up with primary care provider in one to 2 days. Return to the emergency department if you have any worsening symptoms Prescriptions: Fluconazole [Diflucan] 150 mg PO ONCE #1 tab glipiZIDE [Glucotrol] 10 mg PO AC-BID 30 Days tablet Miconazole 2% Vaginal Cream [Monistat 7] 1 applicator VAGINAL HS 7 Days cream.appl Is patient prescribed a controlled substance at d/c from ED?: No Referrals: Damian Oscar MD [REFERRING] - 1-2 days Cathie Miranda III, MD [STAFF PHYSICIAN] - 1-2 days Time of Disposition: 18:31
== END 2017-11-19 19:13 | disposition home or self-care (01) ==
LOC: EC 17:46
DX: B37.3 Candidiasis of vulva and vagina (principal); J45.909 Unspecified asthma, uncomplicated; E11.9 Type 2 diabetes mellitus without complications; Z86.73 Personal history of transient ischemic attack (TIA), and cerebral infarction without residual deficits; Z87.891 Personal history of nicotine dependence; Z88.8 Allergy status to other drugs, medicaments and biological substances; Z91.018 Allergy to other foods; Z53.29 Procedure and treatment not carried out because of patient's decision for other reasons
CPT/HCPCS: 36415; 99283

== ENCOUNTER 2017-12-18 10:06 | Emergency (ER) | payer OTHER ==
--- NOTE | 2017-12-18 11:18 | ED ---
General Adult HPI - General Chief complaint: Upper Respiratory Infection Stated complaint: coughing, flu like symptoms Time Seen by Provider: 12/18/17 10:58 Source: patient, RN notes reviewed Mode of arrival: ambulatory Limitations: no limitations - History of Present Illness Initial comments: Patient's a 42-year-old female presents to the emergency room today with chief complaint cough congestion and body aches that started last night. Patient does admit that she started having increased cough congestion with positive sputum production. She states that it's green in color. She does not that she had similar symptoms when she was diagnosed with pneumonia last year. Patient denies any other complaints or symptoms. Patient denies any recent shortness of breath, chest pain, back pain, abdominal pain, nausea or vomiting, numbness or tingling, dysuria or hematuria, constipation or diarrhea, headaches or visual changes, or any other complaints. - Related Data Previous Rx's Medication Instructions Recorded glipiZIDE [Glucotrol] 10 mg PO AC-BID 30 Days tablet 11/19/17 Albuterol Inhaler [Ventolin Hfa 1 - 2 puff INHALATION Q4-6H PRN #1 12/18/17 Inhaler] inhaler Azithromycin [Zithromax Z-pack] 0 mg PO DIRECTED #6 tab 12/18/17 predniSONE 50 mg PO DAILY #5 tab 12/18/17 Allergies Allergy/AdvReac Type Severity Reaction Status Date / Time black pepper Allergy Rash/Hives Verified 12/18/17 11:03 metformin AdvReac Nausea & Verified 12/18/17 11:03 Vomiting Review of Systems ROS Statement: Those systems with pertinent positive or pertinent negative responses have been documented in the HPI. ROS Other: All systems not noted in ROS Statement are negative. Past Medical History Past Medical History: Asthma, CVA/TIA, Diabetes Mellitus, Liver Disease Additional Past Medical History / Comment(s): GALLSTONES, DIVERTICULITIS, fatty liver History of Any Multi-Drug Resistant Organisms: None Reported Past Surgical History: Section, Cholecystectomy, Tubal Ligation Past Anesthesia/Blood Transfusion Reactions: No Reported Reaction Past Psychological History: Bipolar, Depression Smoking Status: Current every day smoker Past Alcohol Use History: Occasional Past Drug Use History: Marijuana General Exam - General Exam Comments Initial Comments: General: The patient is awake and alert, in no distress, and does not appear acutely ill. Eye: Pupils are equal, round and reactive to light. Extra-ocular movements are intact. No nystagmus. There is normal conjunctiva bilaterally. No signs of icterus. Ears, nose, mouth and throat: There are moist mucous membranes and no oral lesions. Neck: The neck is supple, there is no tenderness or JVD. Cardiovascular: There is a regular rate and rhythm. No murmur, rub or gallop is appreciated. Respiratory: Lungs are clear to auscultation, respirations are non-labored, breath sounds are equal. No wheezes, stridor, rales, or rhonchi. Musculoskeletal: Normal ROM, no tenderness. Sensation intact. Strength 5/5. Pulses equal bilaterally 2+. Neurological: A&O x 3. CN II-XII intact, There are no obvious motor or sensory deficits. Coordination appears grossly intact. Speech is normal. Skin: Skin is warm and dry and no rashes or lesions are noted. Psychiatric: Cooperative, appropriate mood & affect, normal judgment. Limitations: no limitations Course Vital Signs 12/18/17 12/18/17 10:16 11:27 Temperature 98.3 F Pulse Rate 79 Respiratory 20 18 Rate Blood Pressure 103/63 O2 Sat by Pulse 98 Oximetry Medical Decision Making - Medical Decision Making X-ray reviewed negative for any sign of pneumonia. Patient will be treated for bronchitis infections started on azithromycin and also steroids and albuterol inhaler. Patient is advised follow-up with family physician. Return if symptoms increase worsen. Disposition Clinical Impression: Acute bronchitis Disposition: HOME SELF-CARE Condition: Good Instructions: Upper Respiratory Infection (ED) Additional Instructions: Please use medication as discussed. Please follow-up with family doctor in the next 2 days of symptoms have not improved. Please return to emergency room if the symptoms increase or worsen or for any other concerns. Prescriptions: Albuterol Inhaler [Ventolin Hfa Inhaler] 1 - 2 puff INHALATION Q4-6H PRN #1 inhaler PRN Reason: Cough Azithromycin [Zithromax Z-pack] 0 mg PO DIRECTED #6 tab predniSONE 50 mg PO DAILY #5 tab Is patient prescribed a controlled substance at d/c from ED?: No Referrals: Damian Oscar MD [Primary Care Provider] - 1-2 days Time of Disposition: 11:59
[2017-12-18 11:28] VITALS: RESP 18
--- NOTE | 2017-12-18 11:41 | XR ---
EXAMINATION TYPE: XR chest 2V DATE OF EXAM: 12/18/2017 COMPARISON: Prior chest x-ray 06/02/2017 HISTORY: Cough TECHNIQUE: Frontal and lateral views of the chest are obtained. FINDINGS: There is no focal air space opacity, pleural effusion, or pneumothorax seen. The cardiac silhouette size is within normal limits. The osseous structures are intact. There is some bronchial wall thickening. IMPRESSION: Correlate for bronchitis, reactive airways disease, follow-up as indicated.
[2017-12-18 13:02] VITALS: BP 132/79; PULSE 80; TEMP 98.1
== END 2017-12-18 13:00 | disposition home or self-care (01) ==
LOC: EC 10:06
DX: J20.9 Acute bronchitis, unspecified (principal); F17.200 Nicotine dependence, unspecified, uncomplicated; Z87.01 Personal history of pneumonia (recurrent); Z86.73 Personal history of transient ischemic attack (TIA), and cerebral infarction without residual deficits; Z88.8 Allergy status to other drugs, medicaments and biological substances; Z91.018 Allergy to other foods
CPT/HCPCS: 71046; 99283

== ENCOUNTER 2018-01-12 13:06 | Emergency (ER) | payer OTHER ==
[2018-01-12 13:16] VITALS: TEMP 98.1
[2018-01-12] MEDS ORDERED: ASPIRIN 81 MG PO STA (13:22)
[2018-01-12 14:13] LABS: Basophils # (A) 0.1 k/uL (0-0.2); Basophils % (A) 1 %; Eosinophils # (A) 0.3 k/uL (0-0.7); Eosinophils % (A) 3 %; HCT 37.4 % (34.0-46.0); HGB 11.4 gm/dL (11.4-16.0); Hypochromasia Moderate; Lymphocytes # (A) 2.5 k/uL (1.0-4.8); Lymphocytes % (A) 30 %; MCH 25.7 pg (25.0-35.0); MCHC 30.5 g/dL (31.0-37.0); MCV 84.2 fL (80.0-100.0); Mean Platelet Volume 7.4; Monocytes # (A) 0.4 k/uL (0-1.0); Monocytes % (A) 5 %; Neutrophils # (A) 4.8 k/uL (1.3-7.7); Neutrophils % (A) 59 %; Platelet Count 255 k/uL (150-450); RBC 4.44 m/uL (3.80-5.40); RDW 14.5 % (11.5-15.5); WBC 8.2 k/uL (3.8-10.6)
--- NOTE | 2018-01-12 14:19 | XR ---
EXAMINATION TYPE: XR chest 2V DATE OF EXAM: 01/12/2018 COMPARISON: 12/18/2017 TECHNIQUE: PA and lateral views submitted. HISTORY: Chest pain FINDINGS: The lungs are clear and there is no pneumothorax, pleural effusion, or focal pneumonia. No overt fa ilure. Atherosclerotic change of aorta. Hypertrophic change of the vertebral column. IMPRESSION: 1. No acute process.
[2018-01-12 14:24] LABS: ALT 55 U/L (9-52); AST 47 U/L (14-36); Albumin 3.6 g/dL (3.5-5.0); Alkaline Phosphatase 106 U/L (38-126); Anion Gap 11 mmol/L; Blood Urea Nitrogen 8 mg/dL (7-17); Calcium 9.3 mg/dL (8.4-10.2); Carbon Dioxide 22 mmol/L (22-30); Chloride 102 mmol/L (98-107); Glucose 411 mg/dL (74-99); Magnesium 1.8 mg/dL (1.6-2.3); Potassium 4.4 mmol/L (3.5-5.1); Sodium 135 mmol/L (137-145); Total Bilirubin 0.8 mg/dL (0.2-1.3); Total Protein 6.9 g/dL (6.3-8.2)
[2018-01-12 14:27] LABS: Partial Thromboplastin Time 22.9 sec (22.0-30.0); Prothrombin Time 10.2 sec (9.0-12.0)
[2018-01-12] MEDS ORDERED: ONDANSETRON 4 MG/2 ML VIAL IVP STA (14:33)
--- NOTE | 2018-01-12 16:26 | CT ---
EXAMINATION TYPE: CT angio chest DATE OF EXAM: 01/12/2018 COMPARISON: 04/25/2014 HISTORY: Chest heaviness, pain and right shoulder pain. CT DLP: 641.8 mGycm CONTRAST: CT chest with contrast and 3D reconstruction with MIP imaging is performed with IV Contrast, patient injected with 73 mL of Isovue 370. Contrast-enhanced CT of the chest was performed through the course of the pulmonary arteries with tyler g and mediastinal window settings submitted. 3D reconstruction with MIP imaging was also performed. PULMONARY ARTERIES: The pulmonary arteries and their major tributaries are patent. I do not see melinda dence for sizable filling defect to suggest pulmonary embolic process. LUNGS: The lungs are clear and free of infiltrate. No evidence for atelectasis. No pulmonary nodule or mass is detected. No pleural effusion. MEDIASTINUM: Thoracic aorta is of normal caliber,however, evaluation is limited given timing of the contrast bolus. If there is concern for thoracic aortic pathology consider KELECHI. Correlate clinicall y . The heart is not enlarged. No evidence for mediastinal mass. No mediastinal lymph nodes greater than 1cm. HILAR STRUCTURES: No evidence for mass. No hilar lymph nodes greater than 1 cm. UPPER ABDOMEN: No significant abnormality is seen. IMPRESSION: 1. No evidence for Pulmonary embolism at this time.
[2018-01-12 17:19] VITALS: BP 123/85; PULSE 68; RESP 16
[2018-01-12] MEDS ORDERED: glipiZIDE 5 MG TAB PO STA (18:51)
--- NOTE | 2018-01-12 18:52 | ED ---
Chest Pain HPI - General Chief Complaint: Chest Pain Stated Complaint: Chest feels heavy Time Seen by Provider: 01/12/18 13:22 Source: patient Mode of arrival: ambulatory Limitations: no limitations - History of Present Illness Initial Comments: Patient complains of chest pain. Pain is in the middle of the chest. It is not radiating to anywhere. She has some shortness of breath as well. She has no nausea or vomiting or diaphoresis. She has no back pain. She has no weakness. She has no lightheadedness or dizziness. She denies sick a be. She has taken no medication for symptoms. She was not doing anything when this began. - Related Data Previous Rx's Medication Instructions Recorded glipiZIDE [Glucotrol] 10 mg PO AC-BID 30 Days tablet 11/19/17 Allergies Allergy/AdvReac Type Severity Reaction Status Date / Time black pepper Allergy Rash/Hives Verified 01/12/18 13:59 metformin AdvReac Nausea & Verified 01/12/18 13:59 Vomiting Review of Systems ROS Statement: Those systems with pertinent positive or pertinent negative responses have been documented in the HPI. ROS Other: All systems not noted in ROS Statement are negative. EKG Findings - EKG Comments: EKG Findings:: Twelve-lead EKG shows ventricular rate 97 bpm, normal WI interval and QRS, looks is, no ST elevation or depression, interpreted by me as normal sinus rhythm. Past Medical History Past Medical History: Asthma, CVA/TIA, Diabetes Mellitus, Liver Disease Additional Past Medical History / Comment(s): GALLSTONES, DIVERTICULITIS, fatty liver History of Any Multi-Drug Resistant Organisms: None Reported Past Surgical History: Section, Cholecystectomy, Tubal Ligation Past Anesthesia/Blood Transfusion Reactions: No Reported Reaction Past Psychological History: Bipolar, Depression Smoking Status: Current every day smoker Past Alcohol Use History: Occasional Past Drug Use History: Marijuana General Exam Limitations: no limitations General appearance: alert, in no apparent distress Head exam: Present: atraumatic, normocephalic, normal inspection Eye exam: Present: normal appearance, PERRL, EOMI. Absent: scleral icterus, conjunctival injection, periorbital swelling ENT exam: Present: normal exam, mucous membranes moist Neck exam: Present: normal inspection. Absent: tenderness, meningismus, lymphadenopathy Respiratory exam: Present: normal lung sounds bilaterally. Absent: respiratory distress, wheezes, rales, rhonchi, stridor Cardiovascular Exam: Present: regular rate, normal rhythm, normal heart sounds. Absent: systolic murmur, diastolic murmur, rubs, gallop, clicks GI/Abdominal exam: Present: soft, normal bowel sounds. Absent: distended, tenderness, guarding, rebound, rigid Extremities exam: Present: normal inspection, full ROM, normal capillary refill. Absent: tenderness, pedal edema, joint swelling, calf tenderness Back exam: Present: normal inspection Neurological exam: Present: alert, oriented X3, CN II-XII intact Psychiatric exam: Present: normal affect, normal mood Skin exam: Present: warm, dry, intact, normal color. Absent: rash Course Vital Signs 01/12/18 01/12/18 13:13 17:16 Temperature 98.1 F Pulse Rate 97 68 Respiratory 22 16 Rate Blood Pressure 141/81 123/85 O2 Sat by Pulse 97 98 Oximetry Chest Pain MDM - MDM Patient presents with chest pain. EKG is normal. Repeat troponins are all normal. Lipase is normal. I obtained a CT of the chest which shows no evidence of an acute emergency including pulmonary M wasn't. On reevaluation the patient feels much better. I can find no evidence of an emergency condition. She is stable for discharge. Disposition Clinical Impression: Atypical chest pain Disposition: HOME SELF-CARE Condition: Good Instructions: Chest Pain (ED) Is patient prescribed a controlled substance at d/c from ED?: No Referrals: Damian Oscar MD [Primary Care Provider] - 1-2 days
== END 2018-01-12 19:45 | disposition home or self-care (01) ==
LOC: EC 13:06
DX: R07.89 Other chest pain (principal); R06.02 Shortness of breath; F17.200 Nicotine dependence, unspecified, uncomplicated; Z88.8 Allergy status to other drugs, medicaments and biological substances; Z91.018 Allergy to other foods; Z86.73 Personal history of transient ischemic attack (TIA), and cerebral infarction without residual deficits
CPT/HCPCS: 36415; 93005; 83880; 80053; 83690; 83735; 84484; 85025; 85610; 85730; 71046; 71275; 99285; 96374; J2405; Q9967

== ENCOUNTER 2018-01-24 22:17 | Emergency (ER) | payer OTHER ==
[2018-01-24 22:23] VITALS: BP 131/85; PULSE 92; RESP 18; TEMP 98.5
[2018-01-24] MEDS ORDERED: predniSONE 50 MG TAB PO STA (22:32)
[2018-01-24] MEDS ORDERED: diphenhydrAMINE 50 MG CAP PO STA (22:32)
[2018-01-24] MEDS ORDERED: FAMOTIDINE 20 MG TAB PO STA (22:32)
--- NOTE | 2018-01-24 22:36 | ED ---
Allergic Reaction HPI - General Chief complaint: Allergic Reaction Stated complaint: Allergic Reaction Time Seen by Provider: 01/24/18 22:24 Source: patient, RN notes reviewed, old records reviewed Mode of arrival: ambulatory Limitations: no limitations - History of Present Illness Initial Comments: This patient's a 42-year-old female who presents emergency Department due to complaint of a rash over her face, and arms. She is concerned that she is having ALLERGIC reaction to new medication. Patient was recently started on Lyrica. Patient reports that she noticed that her face became somewhat Patient. She denies any tongue swelling. She denies any difficulty breathing. Patient denies any recent fever, chills, shortness of breath, chest pain, back pain, abdominal pain, nausea vomiting, numbness or tingling, dysuria or hematuria, constipation or diarrhea, headaches or visual changes, or any other current symptoms - Related Data Previous Rx's Medication Instructions Recorded glipiZIDE [Glucotrol] 10 mg PO AC-BID 30 Days tablet 11/19/17 Famotidine [Pepcid] 20 mg PO BID #20 tablet 01/24/18 diphenhydrAMINE [Benadryl] 25 mg PO QID PRN #20 capsule 01/24/18 predniSONE 50 mg PO DAILY #5 tablet 01/24/18 Allergies Allergy/AdvReac Type Severity Reaction Status Date / Time black pepper Allergy Rash/Hives Verified 01/24/18 22:23 metformin AdvReac Nausea & Verified 01/24/18 22:23 Vomiting Review of Systems ROS Statement: Those systems with pertinent positive or pertinent negative responses have been documented in the HPI. ROS Other: All systems not noted in ROS Statement are negative. Past Medical History Past Medical History: Asthma, CVA/TIA, Diabetes Mellitus, Liver Disease Additional Past Medical History / Comment(s): GALLSTONES, DIVERTICULITIS, fatty liver History of Any Multi-Drug Resistant Organisms: None Reported Past Surgical History: Section, Cholecystectomy, Tubal Ligation Past Anesthesia/Blood Transfusion Reactions: No Reported Reaction Past Psychological History: Bipolar, Depression Smoking Status: Current every day smoker Past Alcohol Use History: Occasional Past Drug Use History: Marijuana General Exam - General Exam Comments Initial Comments: This Patient is a 42-year-old female. Alert and oriented. Patient appears in no acute distress. Limitations: no limitations General appearance: alert, in no apparent distress Head exam: Present: atraumatic, normocephalic, normal inspection Eye exam: Present: normal appearance, PERRL, EOMI. Absent: scleral icterus, conjunctival injection, periorbital swelling ENT exam: Present: normal exam, mucous membranes moist, other (Patient has evidence of hive-like rash over her face, neck. No signs of tongue swelling.) Neck exam: Present: normal inspection. Absent: tenderness, meningismus, lymphadenopathy Respiratory exam: Present: normal lung sounds bilaterally. Absent: respiratory distress, wheezes, rales, rhonchi, stridor Cardiovascular Exam: Present: regular rate, normal rhythm, normal heart sounds. Absent: systolic murmur, diastolic murmur, rubs, gallop, clicks GI/Abdominal exam: Present: soft, normal bowel sounds. Absent: distended, tenderness, guarding, rebound, rigid Extremities exam: Present: normal inspection, full ROM, normal capillary refill. Absent: tenderness, pedal edema, joint swelling, calf tenderness Back exam: Present: normal inspection Neurological exam: Present: alert, oriented X3, CN II-XII intact Psychiatric exam: Present: normal affect, normal mood Skin exam: Present: warm, dry, intact, normal color, rash, urticaria Course Vital Signs 01/24/18 22:20 Temperature 98.5 F Pulse Rate 92 Respiratory 18 Rate Blood Pressure 131/85 O2 Sat by Pulse 99 Oximetry Medical Decision Making - Medical Decision Making 42-year-old female comes in today with chief complaint of urticaria-like rash over her face. She states that she recently started Lyrica for chronic pain and neuropathy 2 days ago. Patient states that the only new change within her medications or exposures. She does have evidence of urticaria over the face neck and left arm antecubital fossa. She has no other significant complaints. No tongue angioedema. No difficulty in breathing and no stridor noted. At this time Patient was started on by mouth Benadryl Pepcid and prednisone. We' ll discharge the Patient on a short course of steroids, Pepcid and Benadryl. I discussed that she have close follow-up with her primary care physician who prescribed Lyrica as well. And she will discontinue this. Patient agrees to treatment plan will comply. Disposition Clinical Impression: Allergic reaction Disposition: HOME SELF-CARE Condition: Good Instructions: General Allergic Reaction (ED) Additional Instructions: Patient advised to take the medication as prescribed. Avoid Lyrica. Follow-up with PCP for further pain medication recommendation. Prescriptions: diphenhydrAMINE [Benadryl] 25 mg PO QID PRN #20 capsule PRN Reason: Pain Famotidine [Pepcid] 20 mg PO BID #20 tablet predniSONE 50 mg PO DAILY #5 tablet Is patient prescribed a controlled substance at d/c from ED?: No Referrals: Damian Oscar MD [Primary Care Provider] - 1-2 days Time of Disposition: 22:33
== END 2018-01-24 22:48 | disposition home or self-care (01) ==
LOC: EC 22:17
DX: L50.0 Allergic urticaria (principal); T42.6X5A Adverse effect of other antiepileptic and sedative-hypnotic drugs, initial encounter; F17.200 Nicotine dependence, unspecified, uncomplicated; Z88.8 Allergy status to other drugs, medicaments and biological substances; Z91.018 Allergy to other foods
CPT/HCPCS: 99283; J7512

== ENCOUNTER → 2018-02-09 | Outpatient (CLI) | payer OTHER ==
--- NOTE | 2018-02-11 18:24 | MR ---
EXAMINATION TYPE: MR cervical spine wo con DATE OF EXAM: 02/09/2018 COMPARISON: None HISTORY: Neck pain TECHNIQUE: Multiplanar, multisequence images of the cervical spine were acquired. C2-C3: No evidence for degenerative disc disease. No disc bulge/herniation or protrusion. No Canal stenosis. Foramina are patent bilaterally. C3-C4: Central posterior disc herniation may contact the anterior cervical cord. No significant centr al stenosis. C4-C5: Small central posterior disc herniation is present which may contact the anterior cervical cor d, there is posterior extension endplate disc complex but no significant central stenosis. C5-C6: Small posterior disc bulge is present. No significant central stenosis or foraminal encroachme nt. C6-C7: Left posterior paracentral disc bulge is present, lateral extension endplate disc complex resu lts in foraminal encroachment left greater than right. No significant central stenosis. C7-T1: No evidence for degenerative disc disease. No disc bulge/herniation or protrusion. No Canal stenosis. Foramina are patent bilaterally. Cervical segments are intact. There is normal alignment. Cervical spinal cord is of normal signal. Craniovertebral junction relationships are within normal limits. Cervical vertebral bodies show pre served height. There is multilevel spondylosis with endplate discogenic marrow signal change. Loss of disc height and signal is present at C4-5, C5-6 and C6-7. Loss of normal cervical lordosis is presen t. IMPRESSION: Degenerative disc disease as described.
== END | disposition home or self-care (01) ==
LOC: RADMRIMAIN 20:16
PROVIDERS: ATTEND Internal Medicine
DX: M50.30 Other cervical disc degeneration, unspecified cervical region (principal)
CPT/HCPCS: 72141

== ENCOUNTER → 2018-04-06 | Outpatient (CLI) | payer OTHER ==
[2018-04-06 16:32] LABS: Anisocytosis Slight; Basophils # (A) 0.1 k/uL (0-0.2); Basophils % (A) 1 %; Eosinophils # (A) 0.3 k/uL (0-0.7); Eosinophils % (A) 4 %; HCT 34.8 % (34.0-46.0); HGB 10.7 gm/dL (11.4-16.0); Hypochromasia Marked; Lymphocytes # (A) 2.7 k/uL (1.0-4.8); Lymphocytes % (A) 29 %; MCH 25.2 pg (25.0-35.0); MCHC 30.9 g/dL (31.0-37.0); MCV 81.6 fL (80.0-100.0); Mean Platelet Volume 7.2; Monocytes # (A) 0.5 k/uL (0-1.0); Monocytes % (A) 5 %; Neutrophils # (A) 5.6 k/uL (1.3-7.7); Neutrophils % (A) 60 %; Platelet Count 286 k/uL (150-450); RBC 4.26 m/uL (3.80-5.40); RDW 16.1 % (11.5-15.5); WBC 9.4 k/uL (3.8-10.6)
[2018-04-06 22:51] LABS: Albumin 4.2 g/dL (3.80-4.90); Albumin/Globulin Ratio 1.56 (1.60-3.17); Anion Gap 6.6 mmol/L (4.00-12.00); Carbon Dioxide 26.4 mmol/L (21.6-31.8); Globulin 2.7 g/dL (1.6-3.3); Potassium 3.9 mmol/L (3.5-5.5); Total Bilirubin 0.5 mg/dL (0.3-1.2); Total Protein 6.9 g/dL (6.2-8.2)
[2018-04-06 22:58] LABS: Vitamin D 25 Hydroxy 9.9 ng/mL (30.0-100.0)
== END | disposition home or self-care (01) ==
LOC: LABWHC1 15:44
PROVIDERS: ATTEND Nurse Practitioner Acute Care
DX: E55.9 Vitamin D deficiency, unspecified (principal); R41.3 Other amnesia; R53.83 Other fatigue
CPT/HCPCS: 36415; 80053; 82306; 82607; 84207; 84439; 84443; 84481; 85025

== ENCOUNTER 2018-05-03 18:54 | Emergency (ER) | payer OTHER ==
[2018-05-03 19:58] VITALS: TEMP 99.5
[2018-05-03] MEDS ORDERED: MORPHINE SULFATE 4 MG/ML SYRINGE IV STA (20:49)
[2018-05-03] MEDS ORDERED: ONDANSETRON 4 MG/2 ML VIAL IVP STA (20:49)
[2018-05-03] MEDS ORDERED: SODIUM CHLORIDE 0.9% 1,000 ML IV STA (20:49)
[2018-05-03 21:44] LABS: Anisocytosis Slight; Basophils # (A) 0.1 k/uL (0-0.2); Basophils % (A) 1 %; Eosinophils # (A) 0.5 k/uL (0-0.7); Eosinophils % (A) 4 %; HGB 11.4 gm/dL (11.4-16.0); Hypochromasia Moderate; Lymphocytes # (A) 2.9 k/uL (1.0-4.8); Lymphocytes % (A) 22 %; MCH 24.8 pg (25.0-35.0); MCHC 31.5 g/dL (31.0-37.0); MCV 78.6 fL (80.0-100.0); Mean Platelet Volume 9.5; Microcytosis Slight; Monocytes # (A) 0.5 k/uL (0-1.0); Monocytes % (A) 4 %; Neutrophils # (A) 9.2 k/uL (1.3-7.7); Neutrophils % (A) 69 %; Platelet Count 278 k/uL (150-450); RBC 4.58 m/uL (3.80-5.40); RDW 16.5 % (11.5-15.5); WBC 13.2 k/uL (3.8-10.6)
--- NOTE | 2018-05-03 21:52 | XR ---
EXAMINATION TYPE: XR elbow complete RT DATE OF EXAM: 05/03/2018 COMPARISON: NONE HISTORY: Elbow pain TECHNIQUE: 3 views FINDINGS: I see no fracture nor dislocation. Joint spaces are normal. There is no sign of elbow joint effusion. IMPRESSION: Negative right elbow exam.
--- NOTE | 2018-05-03 21:53 | XR ---
EXAMINATION TYPE: XR wrist complete RT DATE OF EXAM: 05/03/2018 COMPARISON: NONE HISTORY: Wrist pain TECHNIQUE: 4 views FINDINGS: There is no sign of fracture nor dislocation. Scaphoid appears intact. Joint spaces appear normal. Metacarpals are intact. IMPRESSION: Negative right wrist exam.
--- NOTE | 2018-05-03 21:54 | XR ---
EXAMINATION TYPE: XR shoulder complete RT DATE OF EXAM: 05/03/2018 COMPARISON: NONE HISTORY: Shoulder pain TECHNIQUE: 3 views FINDINGS: I see no fracture nor dislocation. Joint spaces are fairly normal. There are no pathologic calcifications at the greater tuberosity. IMPRESSION: Negative right shoulder exam.
--- NOTE | 2018-05-03 21:55 | XR ---
EXAMINATION TYPE: XR KUB DATE OF EXAM: 05/03/2018 COMPARISON: NONE HISTORY: Vomiting diarrhea TECHNIQUE: 2 views upright FINDINGS: There is no sign of intestinal obstruction or pneumoperitoneum. Fecal pattern is normal. Th ere are clips from cholecystectomy. Lung bases are clear. There are no pathologic calcifications over the kidneys. IMPRESSION: Nonacute abdomen.
--- NOTE | 2018-05-03 21:56 | XR ---
EXAMINATION TYPE: XR chest 2V DATE OF EXAM: 05/03/2018 COMPARISON: 01/12/2018 HISTORY: Vomiting TECHNIQUE: Frontal and lateral views of the chest are obtained. FINDINGS: Heart and mediastinum are normal. Lungs are clear. Diaphragm is normal. Bony thorax appear s normal. IMPRESSION: Normal chest. No change.
[2018-05-03 21:57] LABS: Albumin 3.9 g/dL (3.5-5.0); Amylase 61 U/L (30-110); Anion Gap 9 mmol/L; Calcium 9.3 mg/dL (8.4-10.2); Carbon Dioxide 24 mmol/L (22-30); Chloride 108 mmol/L (98-107); Glucose 214 mg/dL (74-99); Lipase 43 U/L (23-300); Sodium 141 mmol/L (137-145)
[2018-05-03 22:16] LABS: ALT 42 U/L (9-52); AST 32 U/L (14-36); Alkaline Phosphatase 104 U/L (38-126); Blood Urea Nitrogen 5 mg/dL (7-17); Potassium 4.2 mmol/L (3.5-5.1)
[2018-05-03 22:40] LABS: Appearance,Urine Clear (Clear); Bilirubin,Urine Negative (Negative); Blood,Urine Trace (Negative); Color,Urine Colorless; Glucose,Urine (UA) Negative (Negative); Ketones,Urine Negative (Negative); Leukocyte Esterase,Urine Negative (Negative); Mucus,Urine Rare /hpf; Nitrite,Urine Negative (Negative); PH, Urine 6.5 (5.0-8.0); Protein,Urine Negative (Negative); RBC,Urine <1 /hpf (0-5); Squamous Epithelial Cell,Urine 1 /hpf (0-4); Urobilinogen,Urine <2.0 mg/dL (<2.0); WBC,Urine <1 /hpf (0-5)
--- NOTE | 2018-05-03 23:06 | ED ---
General Adult HPI - General Chief complaint: Nausea/Vomiting/Diarrhea Stated complaint: Vomiting, weakness Time Seen by Provider: 05/03/18 20:43 Source: patient, RN notes reviewed, old records reviewed Mode of arrival: ambulatory Limitations: no limitations - History of Present Illness Initial comments: 42-year-old female presenting for evaluation of nausea vomiting, diarrhea. Patient's symptoms began today, she's had subjective fever and chills, 34 episodes of vomiting and one episode of diarrhea. She does also reports some mild generalized crampy abdominal pain. Previous cholecystectomy. Patient does report fall which occurred yesterday resulting in right arm pain. She reports pain in her right shoulder, right elbow, and right wrist. No head neck or back pain. - Related Data Home Medications Medication Instructions Recorded Confirmed Gabapentin [Neurontin] 300 mg PO TID 05/03/18 05/03/18 Pioglitazone HCl [Actos] 15 mg PO DAILY 05/03/18 05/03/18 Previous Rx's Medication Instructions Recorded glipiZIDE [Glucotrol] 10 mg PO AC-BID 30 Days tablet 11/19/17 Allergies Allergy/AdvReac Type Severity Reaction Status Date / Time black pepper Allergy Rash/Hives Verified 05/03/18 20:46 metformin AdvReac Nausea & Verified 05/03/18 20:46 Vomiting Review of Systems ROS Statement: Those systems with pertinent positive or pertinent negative responses have been documented in the HPI. ROS Other: All systems not noted in ROS Statement are negative. Past Medical History Past Medical History: Asthma, CVA/TIA, Diabetes Mellitus, Liver Disease Additional Past Medical History / Comment(s): GALLSTONES, DIVERTICULITIS, fatty liver History of Any Multi-Drug Resistant Organisms: None Reported Past Surgical History: Section, Cholecystectomy, Tubal Ligation Past Anesthesia/Blood Transfusion Reactions: No Reported Reaction Past Psychological History: Bipolar, Depression Smoking Status: Current every day smoker Past Alcohol Use History: Occasional Past Drug Use History: Marijuana General Exam Limitations: no limitations General appearance: alert, in no apparent distress Head exam: Present: atraumatic, normocephalic Eye exam: Present: normal appearance, PERRL ENT exam: Present: mucous membranes dry Neck exam: Present: normal inspection. Absent: tenderness, meningismus Respiratory exam: Present: normal lung sounds bilaterally. Absent: respiratory distress, wheezes, rales Cardiovascular Exam: Present: regular rate, normal rhythm GI/Abdominal exam: Present: soft. Absent: distended, tenderness, guarding, rebound Extremities exam: Present: normal inspection. Absent: full ROM ( Decreased range of motion right upper extremity, pain with range of motion at the shoulder , elbow, and wrist) Back exam: Present: normal inspection, full ROM Neurological exam: Present: alert, oriented X3, CN II-XII intact. Absent: motor sensory deficit Psychiatric exam: Present: normal affect, normal mood Skin exam: Present: warm, dry, intact. Absent: cyanosis, diaphoretic Course Vital Signs 05/03/18 19:54 Temperature 99.5 F Pulse Rate 110 H Respiratory 20 Rate Blood Pressure 150/89 O2 Sat by Pulse 96 Oximetry Medical Decision Making - Medical Decision Making 42-year-old female presenting with signs and symptoms consistent with gastroenteritis with mild pain. Patient did have fall, this was evaluated with x-rays of the right upper extremity, negative for any acute bony abnormality. X -ray of the chest and abdomen are unremarkable, no obstruction, no intraperitoneal free air. Laboratory studies reveal mild leukocytosis consistent with gastroenteritis, hemoglobin stable, normal CMP, negative influenza, negative urinalysis. Patient given IV fluids, morphine, Zofran. Reevaluation she is feeling much better. She was eager for discharge, will maintain oral hydration at home. Will be presented with worsening or changing symptoms. - Lab Data Result diagrams: 05/03/18 21:15 05/03/18 21:15 Lab Results 05/03/18 05/03/18 05/03/18 Range/Units 21:15 21:15 21:15 WBC 13.2 H (3.8-10.6) k/uL RBC 4.58 (3.80-5.40) m/uL Hgb 11.4 (11.4-16.0) gm/dL Hct 36.0 (34.0-46.0) % MCV 78.6 L (80.0-100.0) fL MCH 24.8 L (25.0-35.0) pg MCHC 31.5 (31.0-37.0) g/dL RDW 16.5 H (11.5-15.5) % Plt Count 278 (150-450) k/uL Neutrophils % 69 % Lymphocytes % 22 % Monocytes % 4 % Eosinophils % 4 % Basophils % 1 % Neutrophils # 9.2 H (1.3-7.7) k/uL Lymphocytes # 2.9 (1.0-4.8) k/uL Monocytes # 0.5 (0-1.0) k/uL Eosinophils # 0.5 (0-0.7) k/uL Basophils # 0.1 (0-0.2) k/uL Hypochromasia Moderate Anisocytosis Slight Microcytosis Slight Sodium 141 (137-145) mmol/L Potassium 4.2 (3.5-5.1) mmol/L Chloride 108 H (98-107) mmol/L Carbon Dioxide 24 (22-30) mmol/L Anion Gap 9 mmol/L BUN 5 L (7-17) mg/dL Creatinine 0.54 (0.52-1.04) mg/dL Est GFR (CKD-EPI)AfAm >90 (>60 ml/min/1.73 sqM) Est GFR (CKD-EPI)NonAf >90 (>60 ml/min/1.73 sqM) Glucose 214 H (74-99) mg/dL Plasma Lactic Acid Hubert 1.5 (0.7-2.0) mmol/L Calcium 9.3 (8.4-10.2) mg/dL Total Bilirubin 1.0 (0.2-1.3) mg/dL AST 32 (14-36) U/L ALT 42 (9-52) U/L Alkaline Phosphatase 104 (38-126) U/L Troponin I (0.000-0.034) ng/mL Total Protein 8.0 (6.3-8.2) g/dL Albumin 3.9 (3.5-5.0) g/dL Amylase 61 (30-110) U/L Lipase 43 (23-300) U/L Urine Color Urine Appearance (Clear) Urine pH (5.0-8.0) Ur Specific [place] (1.001-1.035) Urine Protein (Negative) Urine Glucose (UA) (Negative) Urine Ketones (Negative) Urine Blood (Negative) Urine Nitrite (Negative) Urine Bilirubin (Negative) Urine Urobilinogen (<2.0) mg/dL Ur Leukocyte Esterase (Negative) Urine RBC (0-5) /hpf Urine WBC (0-5) /hpf Ur Squamous Epith Cells (0-4) /hpf Urine Mucus (None) /hpf Urine HCG, Qual (Not Detectd) Influenza Type A RNA (Not Detectd) Influenza Type B (PCR) (Not Detectd) 05/03/18 05/03/18 05/03/18 Range/Units 21:15 21:15 22:30 WBC (3.8-10.6) k/uL RBC (3.80-5.40) m/uL Hgb (11.4-16.0) gm/dL Hct (34.0-46.0) % MCV (80.0-100.0) fL MCH (25.0-35.0) pg MCHC (31.0-37.0) g/dL RDW (11.5-15.5) % Plt Count (150-450) k/uL Neutrophils % % Lymphocytes % % Monocytes % % Eosinophils % % Basophils % % Neutrophils # (1.3-7.7) k/uL Lymphocytes # (1.0-4.8) k/uL Monocytes # (0-1.0) k/uL Eosinophils # (0-0.7) k/uL Basophils # (0-0.2) k/uL Hypochromasia Anisocytosis Microcytosis Sodium (137-145) mmol/L Potassium (3.5-5.1) mmol/L Chloride (98-107) mmol/L Carbon Dioxide (22-30) mmol/L Anion Gap mmol/L BUN (7-17) mg/dL Creatinine (0.52-1.04) mg/dL Est GFR (CKD-EPI)AfAm (>60 ml/min/1.73 sqM) Est GFR (CKD-EPI)NonAf (>60 ml/min/1.73 sqM) Glucose (74-99) mg/dL Plasma Lactic Acid Hubert (0.7-2.0) mmol/L Calcium (8.4-10.2) mg/dL Total Bilirubin (0.2-1.3) mg/dL AST (14-36) U/L ALT (9-52) U/L Alkaline Phosphatase (38-126) U/L Troponin I <0.012 (0.000-0.034) ng/mL Total Protein (6.3-8.2) g/dL Albumin (3.5-5.0) g/dL Amylase (30-110) U/L Lipase (23-300) U/L Urine Color Colorless Urine Appearance Clear (Clear) Urine pH 6.5 (5.0-8.0) Ur Specific [place] 1.000 L (1.001-1.035) Urine Protein Negative (Negative) Urine Glucose (UA) Negative (Negative) Urine Ketones Negative (Negative) Urine Blood Trace H (Negative) Urine Nitrite Negative (Negative) Urine Bilirubin Negative (Negative) Urine Urobilinogen <2.0 (<2.0) mg/dL Ur Leukocyte Esterase Negative (Negative) Urine RBC <1 (0-5) /hpf Urine WBC <1 (0-5) /hpf Ur Squamous Epith Cells 1 (0-4) /hpf Urine Mucus Rare H (None) /hpf Urine HCG, Qual (Not Detectd) Influenza Type A RNA Not Detected (Not Detectd) Influenza Type B (PCR) Not Detected (Not Detectd) 05/03/18 Range/Units 22:30 WBC (3.8-10.6) k/uL RBC (3.80-5.40) m/uL Hgb (11.4-16.0) gm/dL Hct (34.0-46.0) % MCV (80.0-100.0) fL MCH (25.0-35.0) pg MCHC (31.0-37.0) g/dL RDW (11.5-15.5) % Plt Count (150-450) k/uL Neutrophils % % Lymphocytes % % Monocytes % % Eosinophils % % Basophils % % Neutrophils # (1.3-7.7) k/uL Lymphocytes # (1.0-4.8) k/uL Monocytes # (0-1.0) k/uL Eosinophils # (0-0.7) k/uL Basophils # (0-0.2) k/uL Hypochromasia Anisocytosis Microcytosis Sodium (137-145) mmol/L Potassium (3.5-5.1) mmol/L Chloride (98-107) mmol/L Carbon Dioxide (22-30) mmol/L Anion Gap mmol/L BUN (7-17) mg/dL Creatinine (0.52-1.04) mg/dL Est GFR (CKD-EPI)AfAm (>60 ml/min/1.73 sqM) Est GFR (CKD-EPI)NonAf (>60 ml/min/1.73 sqM) Glucose (74-99) mg/dL Plasma Lactic Acid Hubert (0.7-2.0) mmol/L Calcium (8.4-10.2) mg/dL Total Bilirubin (0.2-1.3) mg/dL AST (14-36) U/L ALT (9-52) U/L Alkaline Phosphatase (38-126) U/L Troponin I (0.000-0.034) ng/mL Total Protein (6.3-8.2) g/dL Albumin (3.5-5.0) g/dL Amylase (30-110) U/L Lipase (23-300) U/L Urine Color Urine Appearance (Clear) Urine pH (5.0-8.0) Ur Specific [place] (1.001-1.035) Urine Protein (Negative) Urine Glucose (UA) (Negative) Urine Ketones (Negative) Urine Blood (Negative) Urine Nitrite (Negative) Urine Bilirubin (Negative) Urine Urobilinogen (<2.0) mg/dL Ur Leukocyte Esterase (Negative) Urine RBC (0-5) /hpf Urine WBC (0-5) /hpf Ur Squamous Epith Cells (0-4) /hpf Urine Mucus (None) /hpf Urine HCG, Qual Not Detected (Not Detectd) Influenza Type A RNA (Not Detectd) Influenza Type B (PCR) (Not Detectd) Disposition Clinical Impression: Dehydration, Gastroenteritis Disposition: HOME SELF-CARE Condition: Good Instructions (If sedation given, give patient instructions): Acute Nausea and Vomiting (ED), Acute Diarrhea (ED) Is patient prescribed a controlled substance at d/c from ED?: No Referrals: Damian Oscar MD [Primary Care Provider] - 1-2 days Time of Disposition: 23:07
[2018-05-04 00:03] VITALS: BP 129/89; PULSE 105; RESP 18
== END 2018-05-04 00:02 | disposition home or self-care (01) ==
LOC: EC 18:54
DX: K52.9 Noninfective gastroenteritis and colitis, unspecified (principal); E86.0 Dehydration; E11.9 Type 2 diabetes mellitus without complications; F31.9 Bipolar disorder, unspecified; F17.200 Nicotine dependence, unspecified, uncomplicated; Z79.899 Other long term (current) drug therapy; Z88.8 Allergy status to other drugs, medicaments and biological substances; Z91.018 Allergy to other foods; Z86.73 Personal history of transient ischemic attack (TIA), and cerebral infarction without residual deficits
CPT/HCPCS: 36415; 71046; 74018; 80053; 81001; 81025; 82150; 83605; 83690; 84484; 85025; 87502; 96361; 96374; 96375; 99284

== ENCOUNTER 2018-08-03 13:34 | Emergency (ER) | payer OTHER ==
[2018-08-03 14:24] VITALS: RESP 18
--- NOTE | 2018-08-03 14:41 | ED ---
Abdominal Pain HPI - General Chief Complaint: Abdominal Pain Stated Complaint: burning in stomach & esophagus Time Seen by Provider: 08/03/18 14:27 Source: patient Mode of arrival: ambulatory Limitations: no limitations - History of Present Illness Initial Comments: Patient is a 43-year-old female here complaining of burning in her chest and right-sided abdominal pain. She has had the burning in her chest for over a month now, has been taking Pepcid and it is not working. She went to her PCP today who told her to go into the ER. States her blood glucose was in the 300s today. She does not currently monitor her blood glucose at home. Patient is complaining of dry heaving, nausea, as well as her belly feeling "full". Patient admits to occasional shortness of breath when she is dry heaving and coughing. Denies fever, chills, headache. - Related Data Home Medications Medication Instructions Recorded Confirmed Gabapentin [Neurontin] 300 mg PO TID 05/03/18 05/03/18 Pioglitazone HCl [Actos] 15 mg PO DAILY 05/03/18 05/03/18 Previous Rx's Medication Instructions Recorded glipiZIDE [Glucotrol] 10 mg PO AC-BID 30 Days tablet 11/19/17 Omeprazole 40 mg PO DAILY #14 capsule. 08/03/18 Allergies Allergy/AdvReac Type Severity Reaction Status Date / Time black pepper Allergy Rash/Hives Verified 05/03/18 20:46 pregabalin [From Lyrica] Allergy Rash/Hives Verified 08/03/18 14:24 metformin AdvReac Nausea & Verified 05/03/18 20:46 Vomiting Review of Systems ROS Statement: Those systems with pertinent positive or pertinent negative responses have been documented in the HPI. ROS Other: All systems not noted in ROS Statement are negative. Past Medical History Past Medical History: Asthma, CVA/TIA, Diabetes Mellitus, Liver Disease Additional Past Medical History / Comment(s): GALLSTONES, DIVERTICULITIS, fatty liver History of Any Multi-Drug Resistant Organisms: None Reported Past Surgical History: Section, Cholecystectomy, Tubal Ligation Past Anesthesia/Blood Transfusion Reactions: No Reported Reaction Past Psychological History: Bipolar, Depression Smoking Status: Current every day smoker Past Alcohol Use History: Occasional Past Drug Use History: Marijuana General Exam - General Exam Comments Initial Comments: GENERAL: Well-appearing, well-nourished and in no acute distress, although appears uncomfortable. HEAD: Atraumatic, normocephalic. EYES: Pupils equal round and reactive to light, extraocular movements intact, sclera anicteric, conjunctiva are normal. ENT: TMs normal, nares patent, oropharynx clear without exudates. Moist mucous membranes. NECK: Normal range of motion, supple without lymphadenopathy or JVD. LUNGS: Breath sounds clear to auscultation bilaterally and equal. No wheezes rales or rhonchi. HEART: Regular rate and rhythm without murmurs, rubs or gallops. ABDOMEN: Soft, generalized tenderness, mostly upper quadrants, normoactive bowel sounds. No guarding, no rebound. No masses appreciated. : Deferred EXTREMITIES: Normal range of motion, no pitting or edema. No clubbing or cyanosis. NEUROLOGICAL: Cranial nerves II through XII grossly intact. Normal speech, normal gait. PSYCH: Normal mood, normal affect. SKIN: Warm, Dry, normal turgor, no rashes or lesions noted. Limitations: no limitations Course Vital Signs 08/03/18 14:21 Temperature 97.9 F Pulse Rate 113 H Respiratory 18 Rate Blood Pressure 134/90 O2 Sat by Pulse 99 Oximetry Medical Decision Making - Medical Decision Making Patient is a 43-year-old female complaining of burning chest pain 1 month. Also admits to upper abdominal pain. She has had this pain before. Admits to nausea and dry heaving. Her exam reveals upper abdominal pain, otherwise exam normal. Patient was given fluids and GI cocktail which improved her belly pain and burning. CBC showed mild leukocytosis, glucose 352, negative troponin, lipase 105.. CT negative for any acute process. Patient states her abdominal pain has improved as well as a burning in her chest. Patient discharged home, will start omeprazole. Will follow up with GI doctor on Monday. Case discussed with Dr. Maria. - Lab Data Result diagrams: 08/03/18 15:21 08/03/18 15: Lab Results 08/03/18 08/03/18 08/03/18 Range/Units 15:21 15:21 15:21 WBC 11.2 H (3.8-10.6) k/uL RBC 5.01 (3.80-5.40) m/uL Hgb 12.5 (11.4-16.0) gm/dL Hct 40.3 (34.0-46.0) % MCV 80.4 (80.0-100.0) fL MCH 24.9 L (25.0-35.0) pg MCHC 30.9 L (31.0-37.0) g/dL RDW 16.5 H (11.5-15.5) % Plt Count 303 (150-450) k/uL Neutrophils % 59 % Lymphocytes % 31 % Monocytes % 4 % Eosinophils % 4 % Basophils % 1 % Neutrophils # 6.6 (1.3-7.7) k/uL Lymphocytes # 3.4 (1.0-4.8) k/uL Monocytes # 0.4 (0-1.0) k/uL Eosinophils # 0.5 (0-0.7) k/uL Basophils # 0.1 (0-0.2) k/uL Hypochromasia Marked Anisocytosis Slight Sodium 140 (137-145) mmol/L Potassium 4.5 (3.5-5.1) mmol/L Chloride 101 (98-107) mmol/L Carbon Dioxide 27 (22-30) mmol/L Anion Gap 12 mmol/L BUN 6 L (7-17) mg/dL Creatinine 0.58 (0.52-1.04) mg/dL Est GFR (CKD-EPI)AfAm >90 (>60 ml/min/1.73 sqM) Est GFR (CKD-EPI)NonAf >90 (>60 ml/min/1.73 sqM) Glucose 352 H (74-99) mg/dL Calcium 10.2 (8.4-10.2) mg/dL Total Bilirubin 0.6 (0.2-1.3) mg/dL AST 85 H (14-36) U/L ALT 108 H (9-52) U/L Alkaline Phosphatase 172 H (38-126) U/L Troponin I <0.012 (0.000-0.034) ng/mL Total Protein 8.5 H (6.3-8.2) g/dL Albumin 4.4 (3.5-5.0) g/dL Lipase (23-300) U/L 08/03/18 Range/Units 15:21 WBC (3.8-10.6) k/uL RBC (3.80-5.40) m/uL Hgb (11.4-16.0) gm/dL Hct (34.0-46.0) % MCV (80.0-100.0) fL MCH (25.0-35.0) pg MCHC (31.0-37.0) g/dL RDW (11.5-15.5) % Plt Count (150-450) k/uL Neutrophils % % Lymphocytes % % Monocytes % % Eosinophils % % Basophils % % Neutrophils # (1.3-7.7) k/uL Lymphocytes # (1.0-4.8) k/uL Monocytes # (0-1.0) k/uL Eosinophils # (0-0.7) k/uL Basophils # (0-0.2) k/uL Hypochromasia Anisocytosis Sodium (137-145) mmol/L Potassium (3.5-5.1) mmol/L Chloride (98-107) mmol/L Carbon Dioxide (22-30) mmol/L Anion Gap mmol/L BUN (7-17) mg/dL Creatinine (0.52-1.04) mg/dL Est GFR (CKD-EPI)AfAm (>60 ml/min/1.73 sqM) Est GFR (CKD-EPI)NonAf (>60 ml/min/1.73 sqM) Glucose (74-99) mg/dL Calcium (8.4-10.2) mg/dL Total Bilirubin (0.2-1.3) mg/dL AST (14-36) U/L ALT (9-52) U/L Alkaline Phosphatase (38-126) U/L Troponin I (0.000-0.034) ng/mL Total Protein (6.3-8.2) g/dL Albumin (3.5-5.0) g/dL Lipase 105 (23-300) U/L - EKG Data EKG Comments: Normal sinus rhythm, ventricular rate 95, IA interval 1:30, QTC 427. No ST segment changes. Disposition Clinical Impression: Chest pain due to GERD, Nausea & vomiting, Abdominal pain Disposition: HOME SELF-CARE Condition: Stable Instructions (If sedation given, give patient instructions): Gastroesophageal Reflux Disease (ED), Abdominal Pain (ED) Additional Instructions: Please return to the Emergency Department if symptoms worsen or any other concerns. Follow up with his GI doctor one to 3 days. Start omeprazole. Prescriptions: Omeprazole 40 mg PO DAILY #14 capsule.dr Is patient prescribed a controlled substance at d/c from ED?: No Referrals: Damian Oscar MD [Primary Care Provider] - 1-2 days
[2018-08-03] MEDS ORDERED: SODIUM CHLORIDE 0.9% 1,000 ML IV STA (14:42)
[2018-08-03] MEDS ORDERED: ONDANSETRON 4 MG/2 ML VIAL IVP STA (14:42)
[2018-08-03] MEDS ORDERED: MAG HYDROX/AL HYDROX/SIMETH 30 ML, HYOSCYAMINE ELIXIR 10 ML, CIMETIDINE HCL 300 MG, LID... PO STA ×4 (14:48)
[2018-08-03 15:30] LABS: Anisocytosis Slight; Basophils # (A) 0.1 k/uL (0-0.2); Basophils % (A) 1 %; Eosinophils # (A) 0.5 k/uL (0-0.7); Eosinophils % (A) 4 %; HCT 40.3 % (34.0-46.0); HGB 12.5 gm/dL (11.4-16.0); Hypochromasia Marked; Lymphocytes # (A) 3.4 k/uL (1.0-4.8); Lymphocytes % (A) 31 %; MCH 24.9 pg (25.0-35.0); MCHC 30.9 g/dL (31.0-37.0); MCV 80.4 fL (80.0-100.0); Mean Platelet Volume 8.5; Monocytes # (A) 0.4 k/uL (0-1.0); Monocytes % (A) 4 %; Neutrophils # (A) 6.6 k/uL (1.3-7.7); Neutrophils % (A) 59 %; Platelet Count 303 k/uL (150-450); RBC 5.01 m/uL (3.80-5.40); RDW 16.5 % (11.5-15.5); WBC 11.2 k/uL (3.8-10.6)
[2018-08-03 15:44] LABS: ALT 108 U/L (9-52); AST 85 U/L (14-36); Albumin 4.4 g/dL (3.5-5.0); Alkaline Phosphatase 172 U/L (38-126); Anion Gap 12 mmol/L; Blood Urea Nitrogen 6 mg/dL (7-17); Calcium 10.2 mg/dL (8.4-10.2); Carbon Dioxide 27 mmol/L (22-30); Chloride 101 mmol/L (98-107); Glucose 352 mg/dL (74-99); Potassium 4.5 mmol/L (3.5-5.1); Sodium 140 mmol/L (137-145); Total Bilirubin 0.6 mg/dL (0.2-1.3); Total Protein 8.5 g/dL (6.3-8.2)
--- NOTE | 2018-08-03 16:22 | CT ---
EXAMINATION TYPE: CT abdomen pelvis wo con DATE OF EXAM: 08/03/2018 COMPARISON: 02/23/2017 HISTORY: generalized pain with burning sensation CT DLP: 1188.4 mGycm Automated exposure control for dose reduction was used. TECHNIQUE: Helical acquisition of images was performed from the lung bases through the pelvis. FINDINGS: Lung bases are clear. There is no pleural effusion. Heart size is normal. There is no pericardial eff usion. Liver spleen stomach appear normal. Bile ducts are not dilated. There are clips from cholecystectomy. There is no evidence of pancreatic mass. There is no adrenal mass. Kidneys have normal size. There is no hydronephrosis. There is 3 mm calculu s lower pole left kidney. There is no evidence of a renal mass. There is no retroperitoneal adenopath y. Ureters are not dilated. Bladder distends smoothly. There is no inguinal hernia. There is no free fluid in the pelvis. Appendi x appears normal. There is no evidence of a pelvic mass. Uterus is anteverted. There is some spurring in the lumbar spine. I see no bony destructive process. There is hypertrophic facet arthropathy in the lower lumbar spine with variable spinal stenosis. Stenosis is more severe at L4-5. There is no evidence of free air. There is no ascites. There is no mesenteric edema. There is no sign of a bowel obstruction. IMPRESSION: NO SIGN OF ACUTE ABDOMEN AND PELVIS. NO SIGNIFICANT CHANGE. MODERATE L4-5 BONY SPINAL STENOSIS. STABLE NONOBSTRUCTING LEFT RENAL CALCULUS.
[2018-08-03 17:45] VITALS: BP 115/90; PULSE 107; TEMP 97.8
== END 2018-08-03 17:44 | disposition home or self-care (01) ==
LOC: EC 13:34
DX: K21.9 Gastro-esophageal reflux disease without esophagitis (principal); D72.829 Elevated white blood cell count, unspecified; E11.65 Type 2 diabetes mellitus with hyperglycemia; F17.200 Nicotine dependence, unspecified, uncomplicated; Z86.73 Personal history of transient ischemic attack (TIA), and cerebral infarction without residual deficits; Z87.19 Personal history of other diseases of the digestive system; Z90.49 Acquired absence of other specified parts of digestive tract; Z98.51 Tubal ligation status; Z79.84 Long term (current) use of oral hypoglycemic drugs; Z79.899 Other long term (current) drug therapy; Z91.018 Allergy to other foods; Z88.8 Allergy status to other drugs, medicaments and biological substances
CPT/HCPCS: 36415; 93005; 80053; 83690; 84484; 85025; 74176; 99284; 96374; 96361; J2405

== ENCOUNTER → 2018-08-15 | Outpatient (CLI) | payer OTHER ==
--- NOTE | 2018-08-15 12:27 | FL ---
EXAMINATION TYPE: FL UGI air w small bowel DATE OF EXAM: 08/15/2018 COMPARISON: CT abdomen pelvis 08/03/2018 HISTORY: Abdominal pain TECHNIQUE: A dual contrast UGI study is performed with small bowel follow through. FINDINGS: News Clipping Cutter image of the abdomen shows no gross abnormality. Retained fecal debris in the colon. The esophagus shows normal motility and emptying into the stomach. No evidence of hiatal hernia or s tricture noted. Some gastroesophageal reflux was present. The stomach shows normal distensibility, peristalsis, and mucosal folds although coating of the stoma ch was not optimal.. No evidence of any mass or ulcer disease. The duodenal bulb and sweep are unremarkable. The small bowel study shows normal transit to the colon in less than 60 minutes. There is normal muc osal fold pattern throughout the small bowel. There is no evidence of any stricture or filling defec t noted. The terminal ileum is unremarkable. Surgical clips present right upper quadrant. 3 minutes 52 seconds fluoroscopy time. 28 images obtained documenting procedure. IMPRESSION: Some gastroesophageal reflux was noted..
== END | disposition home or self-care (01) ==
LOC: RADFLMAIN 08:52
PROVIDERS: ATTEND Internal Medicine
DX: K21.9 Gastro-esophageal reflux disease without esophagitis (principal)
CPT/HCPCS: 74249

== ENCOUNTER 2019-01-08 17:40 | Emergency (ER) | payer OTHER ==
[2019-01-08 17:48] VITALS: TEMP 98
--- NOTE | 2019-01-08 18:49 | XR ---
EXAMINATION TYPE: XR knee 4V RT DATE OF EXAM: 01/08/2019 COMPARISON: NONE HISTORY: Knee pain TECHNIQUE: 4 views FINDINGS: I see no fracture nor dislocation. Joint spaces are fairly normal. There is minor spurring on the patella. There is no sign of joint effusion. There is mild spurring of the lateral femoral and tibial condyles. IMPRESSION: Degenerative hypertrophic spurring without significant joint space narrowing. No fracture seen.
--- NOTE | 2019-01-08 19:00 | ED ---
General Adult HPI - General Source: patient, RN notes reviewed, old records reviewed Mode of arrival: ambulatory Limitations: no limitations <Ge Redman - Last Filed: 01/08/19 20:10> <Ariela Brian - Last Filed: 01/11/19 01:11> - General Chief complaint: Fall Stated complaint: fall, rt sided leg pain Time Seen by Provider: 01/08/19 18:07 - History of Present Illness Initial comments: 43-year-old female patient with a seizure evaluation of right knee injury. Patient reports that approximately 2 weeks ago while walking up stairs she slipped, fell down and flexed knee. Patient points that she continues to have pain with ambulation. Reports that now pain has been the posterior aspect of the knee. Denies any blood clots. Denies any other complaints. Systemic: Pt denies fatigue, fever/chills, rash. Pt denies weakness, night sweats, weight loss. Neuro: Pt denies headache, visual disturbances, syncope or pre-syncope. HEENT: Pt denies ocular discharge or irritation, otalgia, rhinorrhea, pharyngitis or notable lymphadenopathy. Cardiopulmonary: Pt denies chest pain, SOB, heart palpitations, dyspnea on exertion. Abdominal/GI: Pt denies abdominal pain, n/v/d. : Pt denies dysuria, burning w/ urination, frequency/urgency. Denies new onset urinary or bowel incontinence. MSK: Pt denies myalgia, loss of strength or function in extremities. Neuro: Pt denies new onset weakness, paresthesias. (Ge Redman) - Related Data Home Medications Medication Instructions Recorded Confirmed Gabapentin [Neurontin] 300 mg PO TID 05/03/18 05/03/18 Pioglitazone HCl [Actos] 15 mg PO DAILY 05/03/18 05/03/18 Previous Rx's Medication Instructions Recorded glipiZIDE [Glucotrol] 10 mg PO AC-BID 30 Days tablet 11/19/17 Omeprazole 40 mg PO DAILY #14 capsule. 08/03/18 Allergies Allergy/AdvReac Type Severity Reaction Status Date / Time black pepper Allergy Rash/Hives Verified 01/08/19 17:48 pregabalin [From Lyrica] Allergy Rash/Hives Verified 01/08/19 17:48 metformin AdvReac Nausea & Verified 01/08/19 17:48 Vomiting Review of Systems ROS Other: All systems not noted in ROS Statement are negative. <Ge Redman - Last Filed: 01/08/19 20:10> ROS Other: All systems not noted in ROS Statement are negative. <Ariela Brian - Last Filed: 01/11/19 01:11> ROS Statement: Those systems with pertinent positive or pertinent negative responses have been documented in the HPI. Past Medical History Past Medical History: Asthma, CVA/TIA, Diabetes Mellitus, Liver Disease Additional Past Medical History / Comment(s): GALLSTONES, DIVERTICULITIS, fatty liver History of Any Multi-Drug Resistant Organisms: None Reported Past Surgical History: Section, Cholecystectomy, Tubal Ligation Past Anesthesia/Blood Transfusion Reactions: No Reported Reaction Past Psychological History: Bipolar, Depression Smoking Status: Current every day smoker Past Alcohol Use History: Occasional Past Drug Use History: Marijuana <Ge Redman - Last Filed: 01/08/19 20:10> General Exam Limitations: no limitations <Ge Redman - Last Filed: 01/08/19 20:10> - General Exam Comments Initial Comments: Constitutional: NAD, AOX3, Pt has pleasant affect. HEENT: NC/AT, trachea midline, neck supple, no lymphadenopathy. Posterior pharynx non erythematous, without exudates. External ears appear normal, without discharge. Mucous membranes moist. Eyes PERRLA, EOM intact. There is no scleral icterus. No pallor noted. Cardiopulmonary: RRR, no murmurs, rubs or gallops, no JVD noted. Lungs CTAB in anterior and posterior draper. No peripheral edema. Abdominal exam: Abdomen soft and non-distended. Abdomen non-tender to palpation in all 4 quadrants. Bowel sounds active in LLQ. No hepatosplenomegaly. No ecchymosis Neuro: CN II-XII grossly intact. No nuchal rigidity. No raccon eyes, no fenton sign, no hemotympanum. No cervical spinal tenderness. MSK: Antalgic gait noted, anterior and posterior aspect of her knee mildly tender. No skin changes. No posterior calf tenderness bilaterally, homans sign negative bilaterally. Posterior tibialis and radial pulse +2 bilaterally. Sensation intact in upper and lower extremities. Full active ROM in upper and lower extremities, 5/5 stregnth. (Ge Redman) Course Vital Signs 01/08/19 01/08/19 01/08/19 17:42 19:20 20:25 Temperature 98.0 F 98.0 F Pulse Rate 95 90 87 Respiratory 20 16 16 Rate Blood Pressure 141/79 140/80 138/70 O2 Sat by Pulse 98 98 98 Oximetry Medical Decision Making <Ge Redman - Last Filed: 01/08/19 20:10> <Ariela Brian - Last Filed: 01/11/19 01:11> - Medical Decision Making Revealed female patient with chief complaint of knee pain following fall 2 weeks ago. Patient will signs are stable, afebrile. Physical exam displayed anterior and posterior aspect of knee mildly tender. Neurovascularly intact. Plain films displayed posterior arthritis. Ultrasound displayed no evidence of DVT, possible Woodward's cyst. She'll be discharged with analgesia primary care orthopedic follow-up. Case discussed with Dr. Brian. (Ge Redman) I was available for consultation in the emergency department. The history and physical exam were done by the midlevel provider. I was consulted for this patients care. I reviewed the case with the midlevel provider and based on their presentation of the patient, I agree with the assessment, medical decision making and plan of care as documented. Chart was dictated using [employer] dictation software. Attempts were made to correct any dictation errors however some typographical errors may persist. (Ariela Brian) Disposition Is patient prescribed a controlled substance at d/c from ED?: No <Ge Redman - Last Filed: 01/08/19 20:10> <Ariela Brian - Last Filed: 01/11/19 01:11> Clinical Impression: Bakers cyst, Knee pain, Osteoarthritis Disposition: HOME SELF-CARE Condition: Stable Instructions (If sedation given, give patient instructions): Knee Pain (ED) Additional Instructions: Patient to adhere to previously discussed treatment plan and will take medication(s) as directed. Patient to follow up with PCP in 1-2 days. Patient to return to ED if symptoms do not improve. Use Tylenol and Motrin for pain. Follow with primary care provider and orthopedic consult. Return to ER if condition worsens. Referrals: Damian Oscar MD [Primary Care Provider] - 1-2 days Jason Solitario MD [STAFF PHYSICIAN] - 1-2 days
[2019-01-08 19:28] VITALS: RESP 16
--- NOTE | 2019-01-08 19:57 | US ---
EXAMINATION TYPE: US venous doppler duplex LE RT DATE OF EXAM: 01/08/2019 7:15 PM COMPARISON: NONE CLINICAL HISTORY: pain popliteal. Posterior knee pain x 2 weeks. Patient fell 2 weeks ago. No hx of D VT. Patient does not take blood thinners. SIDE PERFORMED: Right TECHNIQUE: The lower extremity deep venous system is examined utilizing real time linear array sonog jono with graded compression, doppler sonography and color-flow sonography. VESSELS IMAGED: External Iliac Vein (EIV) Common Femoral Vein Deep Femoral Vein Greater Saphenous Vein * Femoral Vein Popliteal Vein Small Saphenous Vein * Proximal Calf Veins (* superficial vessels) Right Leg: Patient had difficulty tolerating compression of distal femoral vein. No evidence of DVT in veins imaged at this time. Limited evaluation of popliteal vein due to patient's pain level during compressions. Complex area seen posterior right knee measurin.0 x 3.3 x 1.6 cm. IMPRESSION: No evidence of deep venous thrombosis in the right leg. There is a popliteal cyst.
[2019-01-08 20:25] VITALS: BP 138/70; PULSE 87
== END 2019-01-08 20:25 | disposition home or self-care (01) ==
LOC: EC 17:40
DX: M17.11 Unilateral primary osteoarthritis, right knee (principal); E11.9 Type 2 diabetes mellitus without complications; F17.200 Nicotine dependence, unspecified, uncomplicated; Z88.8 Allergy status to other drugs, medicaments and biological substances; Z91.018 Allergy to other foods; Z79.84 Long term (current) use of oral hypoglycemic drugs; Z79.899 Other long term (current) drug therapy; Z86.69 Personal history of other diseases of the nervous system and sense organs; W10.9XXA Fall (on) (from) unspecified stairs and steps, initial encounter; Y93.01 Activity, walking, marching and hiking; Y92.89 Other specified places as the place of occurrence of the external cause
CPT/HCPCS: 99284

== ENCOUNTER → 2019-10-09 | Outpatient (CLI) | payer OTHER | END | disposition home or self-care (01) | LOC: LABWHC1 14:01 | PROVIDERS: ATTEND Family Medicine | DX: Z11.59 Encounter for screening for other viral diseases (principal) | CPT/HCPCS: U0003; C9803 ==

== ENCOUNTER 2024-05-30 23:25 | Emergency (ER) | payer OTHER ==
[2024-05-31] MEDS: IBUPROFEN 600 MG TAB PO STA (00:24)
--- NOTE | 2024-05-31 02:59 | ED ---
General Adult HPI - General Chief complaint: Extremity Injury, Upper Stated complaint: hand injury Time Seen by Provider: 05/30/24 23:56 Source: patient, EMS Mode of arrival: EMS Limitations: no limitations - History of Present Illness Initial comments: 48-year-old female presenting with chief complaint of left thumb pain. Patient was reaching underneath her bed when she jammed her thumb against something. She reports intense throbbing pain that is worse with range of motion. Patient does have range of motion but states that it hurts too much to move. No obvious deformity. No numbness or tingling. No discoloration. - Related Data Home Medications Medication Instructions Recorded Confirmed Gabapentin [Neurontin] 300 mg PO TID 05/03/18 05/03/18 Pioglitazone HCl [Actos] 15 mg PO DAILY 05/03/18 05/03/18 Previous Rx's Medication Instructions Recorded glipiZIDE [Glucotrol] 10 mg PO AC-BID 30 Days tablet 11/19/17 Omeprazole 40 mg PO DAILY #14 capsule. 08/03/18 Allergies Allergy/AdvReac Type Severity Reaction Status Date / Time black pepper Allergy Rash/Hives Verified 01/08/19 17:48 pregabalin [From Lyrica] Allergy Rash/Hives Verified 01/08/19 17:48 metformin AdvReac Nausea & Verified 01/08/19 17:48 Vomiting Review of Systems ROS Statement: Those systems with pertinent positive or pertinent negative responses have been documented in the HPI. ROS Other: All systems not noted in ROS Statement are negative. Past Medical History Past Medical History: Asthma, CVA/TIA, Diabetes Mellitus, Liver Disease Additional Past Medical History / Comment(s): GALLSTONES, DIVERTICULITIS, fatty liver History of Any Multi-Drug Resistant Organisms: None Reported Past Surgical History: Section, Cholecystectomy, Tubal Ligation Past Anesthesia/Blood Transfusion Reactions: No Reported Reaction Past Psychological History: Bipolar, Depression Smoking Status: Never smoker Past Alcohol Use History: Occasional Past Drug Use History: Marijuana General Exam Limitations: no limitations General appearance: alert, in no apparent distress Head exam: Present: atraumatic, normocephalic, normal inspection Eye exam: Present: normal appearance, EOMI Neck exam: Present: normal inspection. Absent: meningismus Respiratory exam: Absent: respiratory distress Cardiovascular Exam: Present: regular rate Extremities exam: Present: normal inspection, full ROM (Range of motion is present but patient has difficulty due to pain), tenderness, normal capillary refill Neurological exam: Present: alert, oriented X3 Psychiatric exam: Present: normal affect, normal mood Skin exam: Present: warm, dry, intact, normal color Course Vital Signs 05/30/24 05/31/24 23:34 03:01 Temperature 97.9 F 97.7 F Pulse Rate 95 82 Respiratory 20 18 Rate Blood Pressure 144/82 138/75 O2 Sat by Pulse 97 98 Oximetry Medical Decision Making - Medical Decision Making Was pt. sent in by a medical professional or institution (, MIS, [employer]ICATOR, urgent care, hospital, or detention...) When possible be specific @ -No Did you speak to anyone other than the patient for history (EMS, parent, family, police, friend...)? What history was obtained from this source @ -No Did you review nursing and triage notes (agree or disagree)? Why? @ -I reviewed and agree with nursing and triage notes Were old charts reviewed (outside hosp., previous admission, EMS record, old EKG, old radiological studies, urgent care reports/EKG's, detention records)? Report findings @ -No old charts were reviewed Differential Diagnosis (chest pain, altered mental status, abdominal pain women, abdominal pain men, vaginal bleeding, weakness, fever, dyspnea, syncope, headache, dizziness, GI bleed, back pain, seizure, CVA, palpatations, mental health, musculoskeletal)? @ -Differential includes fracture, dislocation, sprain, strain, not an all- inclusive list EKG interpreted by me (3pts min.). @ -As above X-rays interpreted by me (1pt min.). @ -X-ray shows no acute fracture or subluxation CT interpreted by me (1pt min.). @ -None done U/S interpreted by me (1pt. min.). @ -None done What testing was considered but not performed or refused? (CT, X-rays, U/S, labs)? Why? @ -None What meds were considered but not given or refused? Why? @ -None Did you discuss the management of the patient with other professionals (professionals i.e. [facility], [employer]RICATOR, lab, RT, psych nurse, vp digital marketing social media and crm, seam steamer, teacher, program officer, social work case manager)? Give summary @ -No Was smoking cessation discussed for >3mins.? @ -No Was critical care preformed (if so, how long)? @ -No Were there social determinants of health that impacted care today? How? (Homelessness, low income, unemployed, alcoholism, drug addiction, transportation, low edu. Level, literacy, decrease access to med. care, long term, rehab)? @ -No Was there de-escalation of care discussed even if they declined (Discuss DNR or withdrawal of care, Hospice)? DNR status @ -No What co-morbidities impacted this encounter? (DM, HTN, Smoking, COPD, CAD, Cancer, CVA, ARF, Chemo, Hep., AIDS, mental health diagnosis, sleep apnea, morbid obesity)? @ -None Was patient admitted / discharged? Hospital course, mention meds given and route, prescriptions, significant lab abnormalities, going to OR and other pertinent info. @ -48-year-old female presenting with chief complaint of left thumb pain after jamming her thumb underneath the bed. No obvious deformity. Neurovascularly intact. X-ray negative for fracture. Patient is educated on today's findings and supportive management at home. Follow-up with PCP. Report back to ER with any new or worsening symptoms. Discussed return parameters and answered all questions. Patient conveyed verbal understanding and agreed to the plan. I d iscussed this case in detail with my attending Dr. Arboleda Undiagnosed new problem with uncertain prognosis? @ -No Drug Therapy requiring intensive monitoring for toxicity (Heparin, Nitro, Insulin, Cardizem)? @ -No Were any procedures done? @ -No Diagnosis/symptom? @ -Finger sprain Acute, or Chronic, or Acute on Chronic? @ -Acute Uncomplicated (without systemic symptoms) or Complicated (systemic symptoms)? @ -Uncomplicated Side effects of treatment? @ -No Exacerbation, Progression, or Severe Exacerbation? @ -No Poses a threat to life or bodily function? How? (Chest pain, USA, CT, pneumonia, PE, COPD, DKA, ARF, appy, cholecystitis, CVA, Diverticulitis, Homicidal, Suicidal, threat to staff... and all critical care pts) @ -Unlikely Disposition Clinical Impression: Thumb injury Disposition: HOME SELF-CARE Condition: Good Instructions (If sedation given, give patient instructions): Finger Sprain (ED) Additional Instructions: Follow-up with PCP. Report back to ER with any new or worsening symptoms. Take Motrin and Tylenol as needed for pain control. Rest and ice the thumb Is patient prescribed a controlled substance at d/c from ED?: No Referrals: Sahil Meraz MD [Primary Care Provider] - 1-2 days Time of Disposition: 02:59
[2024-05-31 03:02] VITALS: BP 138/75; PULSE 82; RESP 18; TEMP 97.7
--- NOTE | 2024-05-31 03:14 | XR ---
EXAM: XR Right Fingers, 2 or More Views CLINICAL HISTORY: ITS.REASON XR Reason: Thumb injury TECHNIQUE: Frontal, lateral and oblique views of the fingers of the right hand. COMPARISON: No relevant prior studies available. FINDINGS: Bones/joints: Diffuse osseous demineralization. No acute fracture or subluxation. Soft tissues: Unremarkable. No radiopaque foreign body. IMPRESSION: No acute fracture or subluxation.
== END 2024-05-31 03:10 | disposition home or self-care (01) ==
LOC: EC 23:25
DX: S69.92XA Unspecified injury of left wrist, hand and finger(s), initial encounter (principal); Z88.2 Allergy status to sulfonamides; Z88.6 Allergy status to analgesic agent; Z91.018 Allergy to other foods; W23.1XXA Caught, crushed, jammed, or pinched between stationary objects, initial encounter
CPT/HCPCS: 99284

== ENCOUNTER 2024-06-10 07:28 | Emergency (ER) | payer OTHER ==
[2024-06-10 07:33] VITALS: TEMP 98.3
--- NOTE | 2024-06-10 07:39 | ED ---
SOB HPI - General Chief Complaint: Shortness of Breath Stated Complaint: SOB Time Seen by Provider: 06/10/24 07:30 Source: patient, RN notes reviewed Mode of arrival: ambulatory Limitations: no limitations - History of Present Illness Initial Comments: This is a 48-year-old female who presents to the emergency department for shortness of breath. 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 About 20 minutes prior to arrival she started to have shortness of breath and coughing, and states that it feels like an asthma flareup. She does not have her inhaler with her. She inquired as to if we could just give her an inhaler, however she was advised that she would need to check in. Denies any chest pain. Denies any fevers/chills. Typically uses her rescue inhaler about 4 times a month. MD Complaint: shortness of breath, cough - Related Data Home Medications Medication Instructions Recorded Confirmed Gabapentin [Neurontin] 300 mg PO TID 05/03/18 05/03/18 Pioglitazone HCl [Actos] 15 mg PO DAILY 05/03/18 05/03/18 Previous Rx's Medication Instructions Recorded glipiZIDE [Glucotrol] 10 mg PO AC-BID 30 Days tablet 11/19/17 Omeprazole 40 mg PO DAILY #14 capsule. 08/03/18 Albuterol Sulfate [Albuterol 1 - 2 puff PO Q4-6H PRN #8.5 gm 06/10/24 Sulfate Hfa] predniSONE 50 mg PO DAILY 5 Days #5 tab 06/10/24 Allergies Allergy/AdvReac Type Severity Reaction Status Date / Time black pepper Allergy Rash/Hives Verified 06/10/24 07:33 pregabalin [From Lyrica] Allergy Rash/Hives Verified 06/10/24 07:33 metformin AdvReac Nausea & Verified 06/10/24 07:33 Vomiting Review of Systems ROS Statement: Those systems with pertinent positive or pertinent negative responses have been documented in the HPI. ROS Other: All systems not noted in ROS Statement are negative. Past Medical History Past Medical History: Asthma, CVA/TIA, Diabetes Mellitus, Liver Disease Additional Past Medical History / Comment(s): GALLSTONES, DIVERTICULITIS, fatty liver History of Any Multi-Drug Resistant Organisms: None Reported Past Surgical History: Section, Cholecystectomy, Tubal Ligation Past Anesthesia/Blood Transfusion Reactions: No Reported Reaction Past Psychological History: Bipolar, Depression Smoking Status: Never smoker Past Alcohol Use History: Occasional Past Drug Use History: Marijuana General Exam Limitations: no limitations General appearance: alert, in no apparent distress Head exam: Present: atraumatic, normocephalic, normal inspection Respiratory exam: Present: wheezes, decreased breath sounds, prolonged expiratory Cardiovascular Exam: Present: regular rate, normal rhythm Neurological exam: Present: alert, oriented X3, CN II-XII intact Psychiatric exam: Present: normal affect, normal mood Skin exam: Present: warm, dry, intact, normal color. Absent: rash Course Vital Signs 06/10/24 06/10/24 06/10/24 07:31 08:04 08:13 Temperature 98.3 F Pulse Rate 113 H 110 H 100 Respiratory 28 H Rate Blood Pressure 143/82 O2 Sat by Pulse 98 Oximetry 06/10/24 08:21 Temperature 98.3 F Pulse Rate 98 Respiratory 18 Rate Blood Pressure 130/77 O2 Sat by Pulse 99 Oximetry Medical Decision Making - Medical Decision Making This is a 48 year old female who presents to the emergency department for shortness of breath. Was pt. sent in by a medical professional or institution? @ -No Did you speak to anyone other than the patient for history? @ -No Did you review nursing and triage notes? @ -Yes, and I agree, it is accurate with regards to the patient's symptoms. Were old charts reviewed? @ -No Differential Diagnosis? @ -Differential Dyspnea: Coronary syndrome, arrhythmia, tamponade, asthma, COPD, pulmonary embolism, pneumonia, pneumothorax, pulmonary effusion, anaphylaxis, diabetic ketoacidosis, flailed chest, pulmonary contusion, diaphragmatic rupture, anemia, neuromuscular, this is not meant to be an all-inclusive list. EKG interpreted by me (3pts min.)? @ -Not obtained X-rays interpreted by me (1pt min.)? @ -Not obtained CT interpreted by me (1pt min.)? @ -Not obtained U/S interpreted by me (1pt. min.)? @ -Not obtained What testing was considered but not performed? (CT, X-rays, U/S, labs)? Why? @ -Chest x-ray and Cepheid 4 Plex testing, however patient refused. What meds were considered but not given? Why? @ -None Did you discuss the management of the patient with other professionals? @ -No Did you reconcile home meds? @ -No Was smoking cessation discussed for >3mins.? @ -I discussed smoking cessation for greater than 3 minutes. The risk of smoking were discussed with the patient including but not limited to risks of cancer, stroke, coronary artery disease and COPD. Also discussed with patient were multiple methods of quitting smoking. Lastly we discussed the financial cost of smoking. Was critical care preformed (if so, how long)? @ -No Were there social determinants of health that impacted care today? How? (Homel essness, low income, unemployed, alcoholism, drug addiction, transportation, low edu. Level, literacy, decrease access to med. care, shelter, rehab)? @ -No Was there de-escalation of care discussed even if they declined? (Discuss DNR or withdrawal of care, Hospice)? @ -No What co-morbidities impacted this encounter? (DM, HTN, Smoking, COPD, CAD, Can cer, CVA, Hep., AIDS, mental health diagnosis, sleep apnea, morbid obesity)? @ -Asthma, smoking Was patient admitted / discharged? @ -Discharged. Patient requested a breathing treatment and declined any further testing. I did offer a chest x-ray and Cepheid 4 Plex testing, however patient refused. DuoNeb breathing treatment and IM Solu-Medrol administered with significant relief in symptoms. Prescription for 5-day course of prednisone and albuterol inhaler provided. Patient discharged home in stable condition. Case discussed with ED attending Dr. Peña. Return precautions reviewed in depth, the patient is instructed to return to the emergency department with any new, worsening, or concerning symptoms. Patient verbalized understanding. Undiagnosed new problem with uncertain prognosis? @ -None Drug Therapy requiring intensive monitoring for toxicity (Heparin, Nitro, Insulin, Cardizem)? @ -None Were any procedures done? @ -None Diagnosis/symptom? @ -Asthma exacerbation Acute, or Chronic, or Acute on Chronic? @ -Acute on chronic Uncomplicated (without systemic symptoms) or Complicated (systemic symptoms)? @ -Uncomplicated Side effects of treatment? @ -None Exacerbation, Progression, or Severe Exacerbation] @ -Exacerbation Poses a threat to life or bodily function? @ -No - Radiology Data Radiology results: report reviewed, image reviewed Disposition Clinical Impression: Asthma exacerbation, Nicotine dependence Disposition: HOME SELF-CARE Instructions (If sedation given, give patient instructions): Asthma (ED), Bronchospasm (ED) Additional Instructions: Return to the emergency department with any new, worsening, or concerning symptoms. Take the prednisone daily for 5 days. Use the albuterol inhaler every 4-6 hours as needed. Follow up with your primary care provider in 1-2 days. Prescriptions: Albuterol Sulfate [Albuterol Sulfate Hfa] 1 - 2 puff PO Q4-6H PRN #8.5 gm PRN Reason: Shortness Of Breath predniSONE 50 mg PO DAILY 5 Days #5 tab Is patient prescribed a controlled substance at d/c from ED?: No Referrals: Sahil Meraz MD [Primary Care Provider] - 1-2 days Time of Disposition: 08:09
[2024-06-10] MEDS: methylPREDNISolone SOD SUCCI 125 MG/2 ML VIAL IM ONE (07:46)
[2024-06-10] MEDS: IPRATROPIUM-ALBUTEROL 3 ML NEB INHALATION STA (08:02)
[2024-06-10 08:29] VITALS: BP 130/77; PULSE 98; RESP 18
== END 2024-06-10 08:30 | disposition home or self-care (01) ==
LOC: EC 07:28
DX: J45.901 Unspecified asthma with (acute) exacerbation (principal); F17.200 Nicotine dependence, unspecified, uncomplicated; Z88.8 Allergy status to other drugs, medicaments and biological substances; Z91.018 Allergy to other foods; Z86.73 Personal history of transient ischemic attack (TIA), and cerebral infarction without residual deficits
CPT/HCPCS: 94640; 99406; 99284; 96372; J2919